=== PATIENT | female | born 1990 | race Caucasian/White ===

== ENCOUNTER 2017-06-21 14:35 | Inpatient (IN) ==
--- NOTE | 2017-06-21 15:08 | Emergency Department Note ---
Disposition Clinical Impression: Suicidal behavior Disposition: Admitted As Inpatient Condition: Fair General Adult HPI - General Chief complaint: ED Psychiatric Symptoms Stated complaint: SI/Psych eval Time Seen by Provider: 06/21/17 15:03 Source: patient Limitations: no limitations - History of Present Illness Pain Scale: 3 - Related Data Home Medications Medication Instructions Recorded Confirmed Albuterol Sulfate [Proair Hfa] 2 puff IH Q4H PRN 02/26/16 06/21/17 BuPROPion SR (12 HR) [Wellbutrin 300 mg PO DAILY 02/26/16 06/21/17 SR] Ondansetron ODT [Zofran ODT] 4 - 8 mg SL Q8H PRN 02/26/16 02/26/16 Pantoprazole Sodium [Protonix] 40 mg PO BID 02/26/16 06/21/17 Ranitidine HCl [Zantac] 150 mg PO BID 02/26/16 06/21/17 SUMAtriptan succinate [Imitrex] 50 mg PO Q2H PRN 02/26/16 02/26/16 Tizanidine HCl [Zanaflex] 2 mg PO HS PRN 02/26/16 02/26/16 Diclofenac Sodium [Voltaren] 50 mg PO Q8HR PRN 06/21/17 06/21/17 Invega 3 mg PO DAILY 06/21/17 06/21/17 Levothyroxine 125 mcg PO DAILY 06/21/17 06/21/17 Valium 5 mg PO BID 06/21/17 06/21/17 Previous Rx's Medication Instructions Recorded hydrOXYzine pamoate [HydrOXYzine 25 - 50 mg PO QID PRN #30 capsule 03/25/16 Pamoate] Hydrocodone/Acetaminophen [[place] 1 tab PO Q6H PRN #10 tab 03/26/16 5-325 Tablet] Cyclobenzaprine HCl 5 mg PO TID PRN #15 tablet 08/05/16 predniSONE [Prednisone] 40 mg PO DAILY #10 tablet 08/05/16 DiphenhydraMINE [Benadryl] 25 mg PO Q8HR PRN #20 capsule 08/11/16 GuaiFENesin ER [Mucinex] 1,200 mg PO BID #20 tbbp.12hr 08/11/16 cephALEXin [Keflex] 500 mg PO QID #40 capsule 08/11/16 Levofloxacin [Levaquin] 500 mg PO DAILY #10 tablet 04/06/17 Loratadine/Pseudophed (12 HR) 1 each PO BID #20 tab.er.12h 04/06/17 [Claritin D (12HR)] methylPREDNISolone [Medrol] 4 mg PO TAPER #21 tablet 04/06/17 Tramadol HCl [Ultram] 50 mg PO QID PRN #20 tab 04/10/17 Allergies Allergy/AdvReac Type Severity Reaction Status Date / Time No Known Allergies Allergy Verified 06/21/17 14:40 Past Medical History - Past Medical History Medical history: Reports: migraine, other Surgical history: Reports: , orthopedic, other, other Psychiatric history: Reports: anxiety, bipolar, depression, other 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 - Social History Smoking Status: Never smoker Smokeless Tobacco Status: No Alcohol use: Reports: occasionally Drug use: Reports: none Physical Exam - General Limitations: no limitations General appearance: anxious Course Vital Signs Temperature 97.8 F 06/21/17 14:41 Pulse Rate 105 06/21/17 14:41 Respiratory Rate 20 06/21/17 14:41 Blood Pressure 150/87 06/21/17 14:41 O2 Sat by Pulse Oximetry 100 06/21/17 14:41 Temperature 97.6 F 06/21/17 21:37 Pulse Rate 94 06/21/17 21:37 Respiratory Rate 18 06/21/17 21:37 Blood Pressure 138/86 06/21/17 21:37 O2 Sat by Pulse Oximetry 100 06/21/17 14:41 Oxygen Delivery Oxygen Delivery Room Air Medical Decision Making - Lab Data Result diagrams: 06/21/17 15:24 06/21/17 15:24 Lab Results 06/21/17 06/21/17 06/21/17 Range/Units 15:24 15:24 15:33 WBC 7.8 (4.3-11.1) K/mcL RBC 3.87 (3.82-4.97) M/mcL Hgb 11.2 L (11.5-15.4) g/dL Hct 34.5 L (35.3-44.9) % MCV 89.1 (83.0-100.0) fL MCH 28.9 (28.0-33.3) pg MCHC 32.5 (31.6-35.5) g/dL RDW 14.1 (11.5-14.5) % Plt Count 196 (140-400) K/mcL MPV 11.1 (9.4-12.4) fL Immature Gran % 0.4 (0-4) % Seg Neutrophils % 61.9 % Lymphocytes % 26.9 % Monocytes % 7.6 % Eosinophils % 2.8 % Basophils % 0.4 % Neutrophils # 4.8 (1.6-8.9) K/mcL Lymphocytes # 2.1 (0.6-4.6) K/mcL Monocytes # 0.6 (0.0-1.3) K/mcL Eosinophils # 0.2 (0.0-0.6) K/mcL Basophils # 0.0 (0.0-0.2) K/mcL Immature Plt Fraction 6.2 H (1.1-6.1) % Sodium 140 (136-145) mEq/L Potassium 3.7 (3.5-4.5) mEq/L Chloride 108 (98-109) mEq/L Carbon Dioxide 27 (19-29) mEq/L BUN 11 (7-20) mg/dL Creatinine 1.01 (0.57-1.11) mg/dL Est GFR ( Amer) > 60 (> 60) Est GFR (Non-Af Amer) > 60 (> 60) BUN/Creatinine Ratio 11 (6-26) Glucose 102 H (70-99) mg/dL Calculated Osmolality 290 (280-300) Calcium 9.3 (8.6-10.8) mg/dL Total Bilirubin < 0.2 L (0.2-1.2) mg/dL AST 27 (5-34) Units/L ALT 29 (0-55) Units/L Alkaline Phosphatase 92 (38-126) Units/L Serum Total Protein 7.2 (6.0-8.3) g/dL Albumin 3.6 (3.5-5.0) g/dL Globulin 3.6 H (2.4-3.5) g/dL Albumin/Globulin Ratio 1.0 L (1.1-2.2) TSH 3.625 (0.350-4.840) mcIU/mL Urine Color Yellow (Yellow) Urine Clarity Clear (Clear) Urine pH 6.0 (5.0-8.0) pH Units Ur Specific [place] 1.011 (1.010-1.025) Urine Protein Negative (Neg-Trace) mg/dL Urine Glucose (UA) Normal (Normal) mg/dL Urine Ketones Negative (Negative) mg/dL Urine Blood Negative (Negative) Urine Nitrite Negative (Negative) Urine Bilirubin Negative (Negative) Urine Urobilinogen Normal (Normal) mg/dL Ur Leukocyte Esterase Negative (Negative) Ur Culture Indicated? NO (NO) Urine Test (Negative) Salicylates < 5.0 L (15-30) mg/dL Urine Opiates Screen (Jsimfc=499) ng/mL Acetaminophen < 1.0 L (10-30) mcg/mL Ur Barbiturates Screen (Sukkxy=649) ng/mL Ur Phencyclidine Scrn (Cutoff=25) ng/mL Ur Amphetamines Screen (Smqval=7530) ng/mL U Benzodiazepines Scrn (Azckwi=598) ng/mL Urine Cocaine Screen (Cutoff= 300) ng/mL U Marijuana (THC) Screen (Cutoff = 50) ng/mL Ethyl Alcohol < 10 (0-10) mg/dL 06/21/17 06/21/17 Range/Units 15:33 15:33 WBC (4.3-11.1) K/mcL RBC (3.82-4.97) M/mcL Hgb (11.5-15.4) g/dL Hct (35.3-44.9) % MCV (83.0-100.0) fL MCH (28.0-33.3) pg MCHC (31.6-35.5) g/dL RDW (11.5-14.5) % Plt Count (140-400) K/mcL MPV (9.4-12.4) fL Immature Gran % (0-4) % Seg Neutrophils % % Lymphocytes % % Monocytes % % Eosinophils % % Basophils % % Neutrophils # (1.6-8.9) K/mcL Lymphocytes # (0.6-4.6) K/mcL Monocytes # (0.0-1.3) K/mcL Eosinophils # (0.0-0.6) K/mcL Basophils # (0.0-0.2) K/mcL Immature Plt Fraction (1.1-6.1) % Sodium (136-145) mEq/L Potassium (3.5-4.5) mEq/L Chloride (98-109) mEq/L Carbon Dioxide (19-29) mEq/L BUN (7-20) mg/dL Creatinine (0.57-1.11) mg/dL Est GFR ( Amer) (> 60) Est GFR (Non-Af Amer) (> 60) BUN/Creatinine Ratio (6-26) Glucose (70-99) mg/dL Calculated Osmolality (280-300) Calcium (8.6-10.8) mg/dL Total Bilirubin (0.2-1.2) mg/dL AST (5-34) Units/L ALT (0-55) Units/L Alkaline Phosphatase (38-126) Units/L Serum Total Protein (6.0-8.3) g/dL Albumin (3.5-5.0) g/dL Globulin (2.4-3.5) g/dL Albumin/Globulin Ratio (1.1-2.2) TSH (0.350-4.840) mcIU/mL Urine Color (Yellow) Urine Clarity (Clear) Urine pH (5.0-8.0) pH Units Ur Specific [place] (1.010-1.025) Urine Protein (Neg-Trace) mg/dL Urine Glucose (UA) (Normal) mg/dL Urine Ketones (Negative) mg/dL Urine Blood (Negative) Urine Nitrite (Negative) Urine Bilirubin (Negative) Urine Urobilinogen (Normal) mg/dL Ur Leukocyte Esterase (Negative) Ur Culture Indicated? (NO) Urine Test Negative (Negative) Salicylates (15-30) mg/dL Urine Opiates Screen Negative (Uloxjg=316) ng/mL Acetaminophen (10-30) mcg/mL Ur Barbiturates Screen Negative (Gfugaa=840) ng/mL Ur Phencyclidine Scrn Negative (Cutoff=25) ng/mL Ur Amphetamines Screen Negative (Wdycib=4426) ng/mL U Benzodiazepines Scrn Positive H (Swvlgh=897) ng/mL Urine Cocaine Screen Negative (Cutoff= 300) ng/mL U Marijuana (THC) Screen Negative (Cutoff = 50) ng/mL Ethyl Alcohol (0-10) mg/dL Attestation Statement - Attestation Attestation: I examined this patient and my medical decision-making was reviewed with the Resident Physician. I agree with the documented findings, disposition and treatment plan as described except to the extent set forth below. [id number] time provided Patient feels depressed and suicidal. Flat affect on exam. Triage note and vitals reviewed by me
--- NOTE | 2017-06-21 15:16 | Emergency Department Note ---
Disposition Clinical Impression: Suicidal behavior Qualifiers: Attempted self-injury: with attempted self-injury Qualified Code(s): T14.91XA - Suicide attempt, initial encounter Disposition: Admitted As Inpatient Condition: Fair Psych HPI - General Chief Complaint: ED Psychiatric Symptoms Stated Complaint: SI/Psych eval Time Seen by Provider: 06/21/17 15:03 Source: patient Nursing Notes Reviewed: Yes Vital Signs Reviewed: Yes - History of Present Illness HPI Narrative: 26-year-old female presents to the emergency department after having worsening suicidal thoughts over the last 2 weeks. Patient states that she has tried to kill herself by cutting her right upper thigh. She has cut it 5 times with a razor blade. She also has thoughts of overdosing on pills, but does not have any specific drug of choice that she would prefer. Patient states that she does not want to hurt anybody else. - Related Data Home Medications Medication Instructions Recorded Confirmed Albuterol Sulfate [Proair Hfa] 2 puff IH Q4H PRN 02/26/16 06/21/17 BuPROPion SR (12 HR) [Wellbutrin 300 mg PO DAILY 02/26/16 06/21/17 SR] Ondansetron ODT [Zofran ODT] 4 - 8 mg SL Q8H PRN 02/26/16 02/26/16 Pantoprazole Sodium [Protonix] 40 mg PO BID 02/26/16 06/21/17 Ranitidine HCl [Zantac] 150 mg PO BID 02/26/16 06/21/17 SUMAtriptan succinate [Imitrex] 50 mg PO Q2H PRN 02/26/16 02/26/16 Tizanidine HCl [Zanaflex] 2 mg PO HS PRN 02/26/16 02/26/16 Diclofenac Sodium [Voltaren] 50 mg PO Q8HR PRN 06/21/17 06/21/17 Previous Rx's Medication Instructions Recorded hydrOXYzine pamoate [HydrOXYzine 25 - 50 mg PO QID PRN #30 capsule 03/25/16 Pamoate] Hydrocodone/Acetaminophen [[place] 1 tab PO Q6H PRN #10 tab 03/26/16 5-325 Tablet] Cyclobenzaprine HCl 5 mg PO TID PRN #15 tablet 08/05/16 predniSONE [Prednisone] 40 mg PO DAILY #10 tablet 08/05/16 DiphenhydraMINE [Benadryl] 25 mg PO Q8HR PRN #20 capsule 08/11/16 GuaiFENesin ER [Mucinex] 1,200 mg PO BID #20 tbbp.12hr 08/11/16 cephALEXin [Keflex] 500 mg PO QID #40 capsule 08/11/16 Levofloxacin [Levaquin] 500 mg PO DAILY #10 tablet 04/06/17 Loratadine/Pseudophed (12 HR) 1 each PO BID #20 tab.er.12h 04/06/17 [Claritin D (12HR)] methylPREDNISolone [Medrol] 4 mg PO TAPER #21 tablet 04/06/17 Tramadol HCl [Ultram] 50 mg PO QID PRN #20 tab 04/10/17 Allergies Allergy/AdvReac Type Severity Reaction Status Date / Time No Known Allergies Allergy Verified 06/21/17 14:40 All systems ED: reviewed and negative except as stated. Review of Systems: As Per HPI Constitutional: Denies: fever Eyes: Denies: eye pain ENT ED: Denies: ear pain, congestion Cardiovascular: Denies: chest pain, edema, syncope Respiratory: Denies: cough, dyspnea Gastrointestinal: Denies: abdominal pain, nausea, vomiting Genitourinary: Denies: urgency, dysuria, frequency Musculoskeletal: Reports: other (Mild right thigh pain) Integumentary: Reports: abrasion (Right upper thigh) Neurological: Denies: headache Psychiatric: Reports: suicidal thoughts. 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 Absent: scleral icterus, conjunctival injection - ENT ENT exam: normal oropharynx, mucous membranes moist - Neck Neck exam: Present: full ROM, trachea midline. Absent: tenderness, meningismus - Chest Chest inspection: Present: symmetric chest wall rise - Respiratory Respiratory exam: Present: normal lung sounds bilaterally. Absent: respiratory distress - Cardiovascular Cardiovascular exam: Present: normal rhythm, tachycardia, normal heart sounds - Abdominal Exam Abdominal exam: Present: soft, Non-Tender. Absent: distention, guarding, rebound, rigidity - Extremities Exam Extremities exam: Present: normal capillary refill - Expanded Lower Extremity Exam Upper leg exam: Present: laceration (15. 3 cm horizontal superficial clean lacerations, no erythema, bleeding or purulent drainage appreciated.) - Back Exam Back exam: Absent: tenderness - Neurological Exam Neurological exam: Present: alert, oriented X3, CN II-XII intact - Psychiatric Psychiatric exam: Present: depressed, suicidal ideation - Skin Skin exam: Present: warm, dry Course Course Narrative: 26-year-old female presents to the emergency department with suicidal ideations. Patient has 15 through 7 are superficial lacerations on the right upper thigh. This does not appear cellulitic in nature, and are too superficial to repair with suture. Patient is currently being medically cleared prior to evaluation by one day. Patient has been pink slipped and is currently on suicide precautions with a sitter. Patient is hemodynamically stable at this time. Vital Signs Temperature 97.8 F 06/21/17 14:41 Pulse Rate 105 06/21/17 14:41 Respiratory Rate 20 06/21/17 14:41 Blood Pressure 150/87 06/21/17 14:41 O2 Sat by Pulse Oximetry 100 06/21/17 14:41 Temperature 97.8 F 06/21/17 14:41 Pulse Rate 105 06/21/17 14:41 Respiratory Rate 20 06/21/17 14:41 Blood Pressure 150/87 06/21/17 14:41 O2 Sat by Pulse Oximetry 100 06/21/17 14:41 Oxygen Delivery Oxygen Delivery Room Air - Reevaluation(s) Reevaluation #1: Patient's labs only came back positive for a urinalysis with benzos. The patient is currently not in any respiratory distress. Patient is medically cleared from the standpoint of the emergency department. We have contacted [facility] to come evaluate her. Time: 16:43 Reevaluation #2: Patient was evaluated by one and was accepted by psychiatry for admission to the hospital. Vital Signs Temperature 97.8 F 06/21/17 14:41 Pulse Rate 105 06/21/17 14:41 Respiratory Rate 20 06/21/17 14:41 Blood Pressure 150/87 06/21/17 14:41 O2 Sat by Pulse Oximetry 100 06/21/17 14:41 Temperature 98.5 F 06/21/17 19:01 Pulse Rate 93 06/21/17 19:01 Respiratory Rate 18 06/21/17 19:01 Blood Pressure 113/79 06/21/17 19:01 O2 Sat by Pulse Oximetry 100 06/21/17 14:41 Oxygen Delivery Oxygen Delivery Room Air Psych - Lab Data Result diagrams: 06/21/17 15:24 06/21/17 15:24 Lab Results 06/21/17 06/21/17 06/21/17 Range/Units 15:24 15:24 15:33 WBC 7.8 (4.3-11.1) K/mcL RBC 3.87 (3.82-4.97) M/mcL Hgb 11.2 L (11.5-15.4) g/dL Hct 34.5 L (35.3-44.9) % MCV 89.1 (83.0-100.0) fL MCH 28.9 (28.0-33.3) pg MCHC 32.5 (31.6-35.5) g/dL RDW 14.1 (11.5-14.5) % Plt Count 196 (140-400) K/mcL MPV 11.1 (9.4-12.4) fL Immature Gran % 0.4 (0-4) % Seg Neutrophils % 61.9 % Lymphocytes % 26.9 % Monocytes % 7.6 % Eosinophils % 2.8 % Basophils % 0.4 % Neutrophils # 4.8 (1.6-8.9) K/mcL Lymphocytes # 2.1 (0.6-4.6) K/mcL Monocytes # 0.6 (0.0-1.3) K/mcL Eosinophils # 0.2 (0.0-0.6) K/mcL Basophils # 0.0 (0.0-0.2) K/mcL Immature Plt Fraction 6.2 H (1.1-6.1) % Sodium 140 (136-145) mEq/L Potassium 3.7 (3.5-4.5) mEq/L Chloride 108 (98-109) mEq/L Carbon Dioxide 27 (19-29) mEq/L BUN 11 (7-20) mg/dL Creatinine 1.01 (0.57-1.11) mg/dL Est GFR ( Amer) > 60 (> 60) Est GFR (Non-Af Amer) > 60 (> 60) BUN/Creatinine Ratio 11 (6-26) Glucose 102 H (70-99) mg/dL Calculated Osmolality 290 (280-300) Calcium 9.3 (8.6-10.8) mg/dL Total Bilirubin < 0.2 L (0.2-1.2) mg/dL AST 27 (5-34) Units/L ALT 29 (0-55) Units/L Alkaline Phosphatase 92 (38-126) Units/L Serum Total Protein 7.2 (6.0-8.3) g/dL Albumin 3.6 (3.5-5.0) g/dL Globulin 3.6 H (2.4-3.5) g/dL Albumin/Globulin Ratio 1.0 L (1.1-2.2) TSH 3.625 (0.350-4.840) mcIU/mL Urine Color Yellow (Yellow) Urine Clarity Clear (Clear) Urine pH 6.0 (5.0-8.0) pH Units Ur Specific [place] 1.011 (1.010-1.025) Urine Protein Negative (Neg-Trace) mg/dL Urine Glucose (UA) Normal (Normal) mg/dL Urine Ketones Negative (Negative) mg/dL Urine Blood Negative (Negative) Urine Nitrite Negative (Negative) Urine Bilirubin Negative (Negative) Urine Urobilinogen Normal (Normal) mg/dL Ur Leukocyte Esterase Negative (Negative) Ur Culture Indicated? NO (NO) Urine Test (Negative) Salicylates < 5.0 L (15-30) mg/dL Urine Opiates Screen (Mxzyxd=868) ng/mL Acetaminophen < 1.0 L (10-30) mcg/mL Ur Barbiturates Screen (Oxzjpa=568) ng/mL Ur Phencyclidine Scrn (Cutoff=25) ng/mL Ur Amphetamines Screen (Hxidhw=4801) ng/mL U Benzodiazepines Scrn (Wvkyxf=128) ng/mL Urine Cocaine Screen (Cutoff= 300) ng/mL U Marijuana (THC) Screen (Cutoff = 50) ng/mL Ethyl Alcohol < 10 (0-10) mg/dL 06/21/17 06/21/17 Range/Units 15:33 15:33 WBC (4.3-11.1) K/mcL RBC (3.82-4.97) M/mcL Hgb (11.5-15.4) g/dL Hct (35.3-44.9) % MCV (83.0-100.0) fL MCH (28.0-33.3) pg MCHC (31.6-35.5) g/dL RDW (11.5-14.5) % Plt Count (140-400) K/mcL MPV (9.4-12.4) fL Immature Gran % (0-4) % Seg Neutrophils % % Lymphocytes % % Monocytes % % Eosinophils % % Basophils % % Neutrophils # (1.6-8.9) K/mcL Lymphocytes # (0.6-4.6) K/mcL Monocytes # (0.0-1.3) K/mcL Eosinophils # (0.0-0.6) K/mcL Basophils # (0.0-0.2) K/mcL Immature Plt Fraction (1.1-6.1) % Sodium (136-145) mEq/L Potassium (3.5-4.5) mEq/L Chloride (98-109) mEq/L Carbon Dioxide (19-29) mEq/L BUN (7-20) mg/dL Creatinine (0.57-1.11) mg/dL Est GFR ( Amer) (> 60) Est GFR (Non-Af Amer) (> 60) BUN/Creatinine Ratio (6-26) Glucose (70-99) mg/dL Calculated Osmolality (280-300) Calcium (8.6-10.8) mg/dL Total Bilirubin (0.2-1.2) mg/dL AST (5-34) Units/L ALT (0-55) Units/L Alkaline Phosphatase (38-126) Units/L Serum Total Protein (6.0-8.3) g/dL Albumin (3.5-5.0) g/dL Globulin (2.4-3.5) g/dL Albumin/Globulin Ratio (1.1-2.2) TSH (0.350-4.840) mcIU/mL Urine Color (Yellow) Urine Clarity (Clear) Urine pH (5.0-8.0) pH Units Ur Specific [place] (1.010-1.025) Urine Protein (Neg-Trace) mg/dL Urine Glucose (UA) (Normal) mg/dL Urine Ketones (Negative) mg/dL Urine Blood (Negative) Urine Nitrite (Negative) Urine Bilirubin (Negative) Urine Urobilinogen (Normal) mg/dL Ur Leukocyte Esterase (Negative) Ur Culture Indicated? (NO) Urine Test Negative (Negative) Salicylates (15-30) mg/dL Urine Opiates Screen Negative (Fobazz=460) ng/mL Acetaminophen (10-30) mcg/mL Ur Barbiturates Screen Negative (Jafjtv=661) ng/mL Ur Phencyclidine Scrn Negative (Cutoff=25) ng/mL Ur Amphetamines Screen Negative (Buhhnx=5017) ng/mL U Benzodiazepines Scrn Positive H (Bsjvor=679) ng/mL Urine Cocaine Screen Negative (Cutoff= 300) ng/mL U Marijuana (THC) Screen Negative (Cutoff = 50) ng/mL Ethyl Alcohol (0-10) mg/dL Psychiatric Medical Clearance - Medical Clearance Checklist Medical History: Suicidal behavior (Acute) Acute pain of right shoulder (Inactive) Acute sinus infection (Inactive) Acute sinusitis (Inactive) Anxiety state, unspecified (Inactive) Back pain (Inactive) Bilateral otitis media (Inactive) Breast pain, right (Inactive) Foot sprain (Inactive) Foot sprain (Inactive) Left otitis externa (Inactive) Lower gastrointestinal hemorrhage (Inactive) Migraine (Inactive) Migraine (Inactive) Right flank pain (Inactive) Sinusitis (Inactive) Sinusitis (Inactive) Sinusitis (Inactive) Sinusitis (Inactive) Sinusitis (Inactive) URI, acute (Inactive) Upper respiratory infection (Inactive) Upper respiratory infection (Inactive) Urinary tract infection (Inactive) No Social History Section defined Current Vitals: Last Vital Signs Temp 98.5 F 06/21/17 19:01 Pulse 93 06/21/17 19:01 Resp 18 06/21/17 19:01 BP 113/79 06/21/17 19:01 Pulse Ox 100 06/21/17 14:41 Psychiatric Lab Panel: Drug Levels and Toxicity 06/21/17 06/21/17 15:24 15:33 Urine Opiates Screen Negative Acetaminophen < 1.0 L Ur Barbiturates Screen Negative Ur Phencyclidine Scrn Negative Ur Amphetamines Screen Negative U Benzodiazepines Scrn Positive H Urine Cocaine Screen Negative U Marijuana (THC) Screen Negative Ethyl Alcohol < 10 Abnormal Labs: Abnormal lab results Hgb 11.2 g/dL (11.5-15.4) L 06/21/17 15:24 Hct 34.5 % (35.3-44.9) L 06/21/17 15:24 Immature Plt Fraction 6.2 % (1.1-6.1) H 06/21/17 15:24 Glucose 102 mg/dL (70-99) H 06/21/17 15:24 Total Bilirubin < 0.2 mg/dL (0.2-1.2) L 06/21/17 15:24 Globulin 3.6 g/dL (2.4-3.5) H 06/21/17 15:24 Albumin/Globulin Ratio 1.0 (1.1-2.2) L 06/21/17 15:24 Salicylates < 5.0 mg/dL (15-30) L 06/21/17 15:24 Acetaminophen < 1.0 mcg/mL (10-30) L 06/21/17 15:24 U Benzodiazepines Scrn Positive ng/mL (Ydffre=195) H 06/21/17 15:33 Statement of Medical Clearance: I have evaluated the patient, reviewed diagnostic information, and certify that the patient's medical condition is sufficiently stable that transfer to the psychiatric unit does not pose a significant risk of deterioration.
[2017-06-21 15:33] LABS: Basophils % 0.4 %; Eosinophils # 0.2 K/mcL (0.0-0.6); Eosinophils % 2.8 %; Hematocrit 34.5 % (35.3-44.9); Hemoglobin 11.2 g/dL (11.5-15.4); Immature Granulocytes % 0.4 % (0-4); Immature Platelets 6.2 % (1.1-6.1); Lymphocytes # 2.1 K/mcL (0.6-4.6); Lymphocytes % 26.9 %; Mean Corpuscular HGB Conc 32.5 g/dL (31.6-35.5); Mean Corpuscular Hemoglobin 28.9 pg (28.0-33.3); Mean Corpuscular Volume 89.1 fL (83.0-100.0); Mean Platelet Volume 11.1 fL (9.4-12.4); Monocytes # 0.6 K/mcL (0.0-1.3); Monocytes % 7.6 %; Neutrophils # 4.8 K/mcL (1.6-8.9); Platelet Count 196 K/mcL (140-400); Red Blood Count 3.87 M/mcL (3.82-4.97); Red Cell Distribution Width 14.1 % (11.5-14.5); Segmented Neutrophils % 61.9 %
[2017-06-21 15:48] LABS: Alanine Aminotransferase 29 Units/L (0-55); Albumin 3.6 g/dL (3.5-5.0); Alkaline Phosphatase 92 Units/L (38-126); Aspartate Amino Transferase 27 Units/L (5-34); BUN/Creatinine Ratio 11 (6-26); Blood Urea Nitrogen 11 mg/dL (7-20); Calcium 9.3 mg/dL (8.6-10.8); Carbon Dioxide 27 mEq/L (19-29); Chloride 108 mEq/L (98-109); Globulin 3.6 g/dL (2.4-3.5); Glucose 102 mg/dL (70-99); Osmolality,Calculated 290 (280-300); Potassium 3.7 mEq/L (3.5-4.5); Sodium 140 mEq/L (136-145); Total Protein 7.2 g/dL (6.0-8.3); eGFR For African Americans > 60 (> 60); eGFR For Non-African Americans > 60 (> 60)
[2017-06-21 15:49] LABS: Bilirubin,Total < 0.2 mg/dL (0.2-1.2); Ethanol < 10 mg/dL (0-10); Salicylate < 5.0 mg/dL (15-30)
[2017-06-21 15:50] LABS: Bilirubin,Urine Negative (Negative); Blood,Urine Negative (Negative); Clarity,Urine Clear (Clear); Color,Urine Yellow (Yellow); Glucose,Urine (UA) Normal (Normal); Ketones,Urine Negative (Negative); Leukocyte Esterase,Urine Negative (Negative); Nitrite,Urine Negative (Negative); Protein,Urine Negative (Neg-Trace); Specific Gravity,Urine 1.011 (1.010-1.025); Urobilinogen,Urine Normal (Normal)
[2017-06-21 16:02] LABS: Amphetamine Screen,Urine Negative ng/mL (Cutoff=1000); Barbiturate Screen,Urine Negative ng/mL (Cutoff=200); Benzodiazepines Screen,Urine Positive ng/mL (Cutoff=200); Cannabinoid Screen,Urine Negative ng/mL (Cutoff = 50); Cocaine Screen,Urine Negative ng/mL (Cutoff= 300); Opiate Screen,Urine Negative ng/mL (Cutoff=300); Phencyclidine Screen,Urine Negative ng/mL (Cutoff=25)
[2017-06-21 16:07] LABS: Thyroid Stimulating Hormone 3.625 mcIU/mL (0.350-4.840)
[2017-06-21 16:35] LABS: Acetaminophen < 1.0 mcg/mL (10-30)
[2017-06-21] MEDS ORDERED: Haloperidol Lactate 5 MG/ML VIAL IM PRN (21:55)
[2017-06-21] MEDS ORDERED: Ibuprofen 400 MG TABLET PO PRN (21:55)
[2017-06-21] MEDS ORDERED: hydrOXYzine pamoate 25 MG CAPSULE PO PRN (21:55)
[2017-06-21] MEDS ORDERED: Mag Hydrox/Al Hydrox/Simeth 30 ML UDC PO PRN (21:55)
[2017-06-21] MEDS ORDERED: *HR* LORazepam 1 MG TABLET PO PRN (21:55)
[2017-06-21] MEDS ORDERED: traZODone 50 MG TABLET PO PRN (21:55)
[2017-06-21] MEDS ORDERED: *HR* LORazepam 2 MG/ML VIAL IM PRN (21:55)
[2017-06-21] MEDS ORDERED: MOM Conc 10 ML UD.LIQ PO PRN (21:55)
[2017-06-21] MEDS ORDERED: Ibuprofen 600 MG TABLET PO PRN (22:36)
[2017-06-22] MEDS: Famotidine 20 MG TABLET PO SCH ×2 (09:33→20:10)
[2017-06-22] MEDS: BuPROPion XL (24 HR) 150 MG TABLET PO SCH (09:33)
[2017-06-22] MEDS: diazePAM 5 MG TABLET PO SCH ×2 (09:33→20:10)
--- NOTE | 2017-06-22 11:26 | Psychiatry History & Physical ---
Date of Encounter: 06/22/17 Time of Encounter: 10:21 History of Present Illness Patient Stated Chief Complaint: "I am depressed and suicidal" Medicare Admission Attestation: For traditional Medicare patients the provided hospital inpatient services are reasonable and necessary and in the case of services not specified as inpatient -only under 42 CFR 419.22 (n), that they are appropriately provided as inpatient services in accordance 42 CFR 412.3. For Critical Access Hospital the patient may reasonably be expected to be discharged or transferred to a hospital within 96 hours after admission to the Critical Access Hospital. Admitted From: Emergency Dept Plans for Post Hospital Care: Home History of Present Illness: Ms. Sauceda is a 26 year old female who was referred for hospitalization from emergency department where she presented with depression and suicidal ideation with thoughts of overdosing on pills and ending her life. Patient reported that she has been struggling from depression off and on since her teenage years. She reported that her recent bout of depression started 2 weeks ago. Symptoms of her depression include low mood and anhedonia isolated and withdrawn behavior hopeless and helpless feelings crying and weeping spells and low energy levels and recurrent suicidal thoughts and ideations. Patient is unable to identify any specific precipitating factor or trigger for this depression. Since patient was suicidal and was unable to contract for safety was decided to transfer her to [facility] for safety concerns. Past Med Surg Social Fam HX - Past Medical History Medical history: migraine, other - Past Psychiatric History Psychiatric history: Reports: depression. Denies: previous psychiatric hospitalization Past psychiatric history details: No prior inpatient psychiatric hospitalization. Patient has been receiving treatment from outpatient providers for her depression for last many years. She reported that she has been tried on Zoloft Celexa Effexor in the past. Currently she is taking Wellbutrin and Invega prescribed by her primary care physician. She did report a good response on Wellbutrin in the past. Family psychiatric history: Yes Family Psychiatric History Details: Mother suffers from anxiety and depression Family History of Suicide: None - Past Surgical History Surgical History: , orthopedic, other, other - Social History Smoking Status: Never smoker Smokeless Tobacco Status: No Alcohol use: occasionally Drug use: none Occupational status: employed Current living situation: Home, With Family Activity Level: Independent ambulation Recent Out of Country Travel Within the Last 8 Weeks: No Exposure or Possible Exposure to Illness During Travel: No Additional social history: Patient is born and raised in [place]. Reported good childhood. Denies any physical or sexual abuse. Patient graduated high school. She has a son from a previous relationship was 4 years old. She is in a lesbian relationship with her partner for the last 4 years. They have been and living together since last year. She reported good relationship with her . She denies any legal issues. Medications & Allergies Albuterol Sulfate [Proair Hfa] 2 puff IH Q4H PRN 02/26/16 [History] BuPROPion SR (12 HR) [Wellbutrin SR] 300 mg PO DAILY 02/26/16 [History] Pantoprazole Sodium [Protonix] 40 mg PO BID 02/26/16 [History] Ranitidine HCl [Zantac] 150 mg PO BID 02/26/16 [History] SUMAtriptan succinate [Imitrex] 50 mg PO Q2H PRN 02/26/16 [History] Diclofenac Sodium [Voltaren] 50 mg PO Q8HR PRN 06/21/17 [History] Levothyroxine [Synthroid] 125 mcg PO DAILY 06/21/17 [History] Paliperidone [Paliperidone ER] 3 mg PO DAILY 06/21/17 [History] diazePAM [Valium] 5 mg PO BID 06/21/17 [History] Montelukast [Singulair] 10 mg PO DAILY 06/22/17 [History] lamoTRIgine [Lamictal] 50 mg PO QAM 06/22/17 [History] 3 Allergy/AdvReac Type Severity Reaction Status Date / Time No Known Allergies Allergy Verified 06/21/17 14:40 Review of Systems Psychiatric: Reports: depression, abnormal sleep pattern, suicidal ideation, anhedonia, difficulty concentrating, hopelessness Mental Status Exam Patient orientation: Yes Person, Yes Time, Yes Place Level of alertness: Alert Patient appearance: Disheveled, Obese Behavior: tearful, withdrawn Psychomotor activity: Slowed Eye contact: Maintains Eye Contact Mood description: Depressed, Anxious Affect description: blunted, tearful, dysphoric Speech pattern: Slowed Speech volume: Soft/Quiet Thought process: Linear, Goal Oriented Thought content: Yes Suicidal ideation, No Homicidal ideation, No Overt delusions, Yes Ideas of reference, Yes Paranoid delusion Perceptual disturbances: No Auditory hallucinations, No Visual hallucinations Attention span: Capable of Focused Attention Memory description: Grossly Intact Patient reliability: Reliable Historian Intelligence estimate: Average Judgment: Fair Insight: Partial Exam - HEENT Head exam IM: Present: normal inspection Eye exam IM: Present: normal appearance ENT exam IM: Present: mucous membranes moist, normal exam - Neurological Neurological exam IM: Present: alert, CN II-XII intact, normal gait, oriented X3 , reflexes normal, no focal deficits, strengths equal and symetr throughout. Absent: motor sensory deficit - Respiratory Respiratory exam IM: Absent: respiratory distress - GI/Abdominal GI/Abdominal exam IM: Present: normal bowel sounds, soft. Absent: mass, tenderness - Extremities Extremities exam IM: Present: normal inspection - Skin Skin exam IM: Present: normal color Results - Vital Signs Vital signs: Temp Pulse Resp BP Pulse Ox 97.6 F 94 18 138/86 100 06/21/17 21:37 06/21/17 21:37 06/21/17 21:37 06/21/17 21:37 06/21/17 14:41 - Labs Labs: Laboratory Last Values WBC 7.8 K/mcL (4.3-11.1) 06/21/17 15:24 RBC 3.87 M/mcL (3.82-4.97) 06/21/17 15:24 Hgb 11.2 g/dL (11.5-15.4) L 06/21/17 15:24 Hct 34.5 % (35.3-44.9) L 06/21/17 15:24 MCV 89.1 fL (83.0-100.0) 06/21/17 15:24 MCH 28.9 pg (28.0-33.3) 06/21/17 15:24 MCHC 32.5 g/dL (31.6-35.5) 06/21/17 15:24 RDW 14.1 % (11.5-14.5) 06/21/17 15:24 Plt Count 196 K/mcL (140-400) 06/21/17 15:24 MPV 11.1 fL (9.4-12.4) 06/21/17 15:24 Immature Gran % 0.4 % (0-4) 06/21/17 15:24 Seg Neutrophils % 61.9 % 06/21/17 15:24 Lymphocytes % 26.9 % 06/21/17 15:24 Monocytes % 7.6 % 06/21/17 15:24 Eosinophils % 2.8 % 06/21/17 15:24 Basophils % 0.4 % 06/21/17 15:24 Neutrophils # 4.8 K/mcL (1.6-8.9) 06/21/17 15:24 Lymphocytes # 2.1 K/mcL (0.6-4.6) 06/21/17 15:24 Monocytes # 0.6 K/mcL (0.0-1.3) 06/21/17 15:24 Eosinophils # 0.2 K/mcL (0.0-0.6) 06/21/17 15:24 Basophils # 0.0 K/mcL (0.0-0.2) 06/21/17 15:24 Immature Plt Fraction 6.2 % (1.1-6.1) H 06/21/17 15:24 Sodium 140 mEq/L (136-145) 06/21/17 15:24 Potassium 3.7 mEq/L (3.5-4.5) 06/21/17 15:24 Chloride 108 mEq/L (98-109) 06/21/17 15:24 Carbon Dioxide 27 mEq/L (19-29) 06/21/17 15:24 BUN 11 mg/dL (7-20) 06/21/17 15:24 Creatinine 1.01 mg/dL (0.57-1.11) 06/21/17 15:24 Est GFR ( Amer) > 60 (> 60) 06/21/17 15:24 Est GFR (Non-Af Amer) > 60 (> 60) 06/21/17 15:24 BUN/Creatinine Ratio 11 (6-26) 06/21/17 15:24 Glucose 102 mg/dL (70-99) H 06/21/17 15:24 Calculated Osmolality 290 (280-300) 06/21/17 15:24 Calcium 9.3 mg/dL (8.6-10.8) 06/21/17 15:24 Total Bilirubin < 0.2 mg/dL (0.2-1.2) L 06/21/17 15:24 AST 27 Units/L (5-34) 06/21/17 15:24 ALT 29 Units/L (0-55) 06/21/17 15:24 Alkaline Phosphatase 92 Units/L (38-126) 06/21/17 15:24 Serum Total Protein 7.2 g/dL (6.0-8.3) 06/21/17 15:24 Albumin 3.6 g/dL (3.5-5.0) 06/21/17 15:24 Globulin 3.6 g/dL (2.4-3.5) H 06/21/17 15:24 Albumin/Globulin Ratio 1.0 (1.1-2.2) L 06/21/17 15:24 TSH 3.625 mcIU/mL (0.350-4.840) 06/21/17 15:24 Urine Color Yellow (Yellow) 06/21/17 15: Urine Clarity Clear (Clear) 06/21/17 15: Urine pH 6.0 pH Units (5.0-8.0) 06/21/17 15:33 Ur Specific [place] 1.011 (1.010-1.025) 06/21/17 15: Urine Protein Negative mg/dL (Neg-Trace) 06/21/17 15: Urine Glucose (UA) Normal mg/dL (Normal) 06/21/17 15:33 Urine Ketones Negative mg/dL (Negative) 06/21/17 15: Urine Blood Negative (Negative) 06/21/17 15: Urine Nitrite Negative (Negative) 06/21/17 15: Urine Bilirubin Negative (Negative) 06/21/17 15:33 Urine Urobilinogen Normal mg/dL (Normal) 06/21/17 15:33 Ur Leukocyte Esterase Negative (Negative) 06/21/17 15:33 Ur Culture Indicated? NO (NO) 06/21/17 15:33 Urine Test Negative (Negative) 06/21/17 15: Salicylates < 5.0 mg/dL (15-30) L 06/21/17 15: Urine Opiates Screen Negative ng/mL (Qvypdb=276) 06/21/17 15: Acetaminophen < 1.0 mcg/mL (10-30) L 06/21/17 15:24 Ur Barbiturates Screen Negative ng/mL (Zzsedm=667) 06/21/17 15: Ur Phencyclidine Scrn Negative ng/mL (Cutoff=25) 06/21/17 15:33 Ur Amphetamines Screen Negative ng/mL (Badcwp=5611) 06/21/17 15:33 U Benzodiazepines Scrn Positive ng/mL (Afmjgh=981) H 06/21/17 15:33 Urine Cocaine Screen Negative ng/mL (Cutoff= 300) 06/21/17 15:33 U Marijuana (THC) Screen Negative ng/mL (Cutoff = 50) 06/21/17 15:33 Ethyl Alcohol < 10 mg/dL (0-10) 06/21/17 15:24 Assessment and Plan (1) MDD (major depressive disorder), recurrent severe, without psychosis Current visit: Yes Status: Acute Plan: Admit inpatient for safety and stabilization, Close observation, Suicide Precautions per unit protocol, Encourage participation in unit milieu, Group Therapy, Monitor sleep, Monitor appetite Additional Plan: We will continue patient's Wellbutrin and InVega and will add Prozac 20 mg daily for her depression and anxiety. Risks, benefits, side effects, alternatives discussed w/pt: Yes Patient agreeable to treatment: Yes Plans for Post Hospital Care: Home Estimated Length of Stay (Days): 4
[2017-06-22] MEDS ORDERED: FLUoxetine HCl Oral Soln 20 MG/5 ML UDC PO SCH ×2 (11:30→15:30)
[2017-06-22] MEDS: FLUoxetine 20 MG CAPSULE PO SCH (19:55)
[2017-06-23] MEDS: BuPROPion XL (24 HR) 150 MG TABLET PO SCH (08:36)
[2017-06-23] MEDS: Famotidine 20 MG TABLET PO SCH ×2 (08:36→20:45)
[2017-06-23] MEDS: diazePAM 5 MG TABLET PO SCH ×2 (08:36→20:45)
[2017-06-23] MEDS: FLUoxetine 20 MG CAPSULE PO SCH (08:37)
[2017-06-23] MEDS ORDERED: FLUoxetine 20 MG CAPSULE PO SCH (09:00)
--- NOTE | 2017-06-23 09:58 | Psychiatry Progress Note ---
Date of Encounter: 06/23/17 Time of Encounter: 08:30 Subjective Interval history: Jayde is a 26-year-old female with a history of depression and borderline personality disorder who presented to the hospital with increasing depression and suicidal ideations. Patient also reports that she occasionally cuts to relieve emotional pain and stress. Over the past few months she had had worsening depression with increasing intermittent suicidal ideations. She was admitted to the hospital and states that she started Prozac yesterday. Patient has not noted benefit from the medicine yet. She still has feelings of hopelessness and generally low mood. She did not take Seroquel yesterday evening for sleep but feels that this medication was too strong. Occasionally she does feel she needs a sleep aid but not every night. Patient has not had the opportunity to attend any group she is willing to do so. No suicidal ideations now but she has had intermittent thoughts since arrival to the hospital. "I just feel really depressed." She does feel supported by her girlfriend and her son, with whom she is living. This is where she will return once she has been stabilized. Review of Systems Constitutional: Denies: fever, chills, weakness, weight change Eyes: Denies: eye pain, vision change Ears, Nose, Throat: Denies: ear pain, throat pain, dental pain, hearing loss, congestion Cardiovascular: Denies: chest pain, palpitations, dyspnea on exertion Respiratory: Denies: cough, dyspnea, wheezes Gastrointestinal: Denies: abdominal pain, nausea, vomiting, diarrhea, constipation Musculoskeletal: Denies: joint swelling, joint pain Neurological: Denies: headache, weakness, numbness, memory loss Psychiatric: Reports: depression, abnormal sleep pattern, suicidal ideation, anhedonia, hopelessness, irritability Objective: Exam Patient orientation: Yes Person, Yes Time, Yes Place Level of alertness: Alert Patient appearance: Unkempt Behavior: calm, cooperative Psychomotor activity: Slowed Eye contact: Minimal Contact Mood description: Depressed Affect description: dysphoric Speech pattern: Normal rate, Normal rhythm, Normal tone Speech volume: Normal Thought process: Intact Thought content: Yes Suicidal ideation Perceptual disturbances: No Auditory hallucinations, No Visual hallucinations Judgment: Limited Insight: Minimal Results - Vital Signs Vital Signs: Temp Pulse Resp BP Pulse Ox 98.2 F 105 16 143/95 100 06/22/17 19:51 06/22/17 19:51 06/22/17 19:51 06/22/17 19:51 06/21/17 14:41 Assessment and Plan (1) MDD (major depressive disorder), recurrent severe, without psychosis Current visit: Yes Status: Acute Plan: Continue hospitalization, Close observation, Suicide Precautions per unit protocol, Encourage participation in unit milieu, Group Therapy, Monitor sleep, Monitor appetite Additional Plan: We will continue Prozac at 40 mg dosage. Discontinue Seroquel. Start trazodone as needed for sleep. Encourage participation in group and unit activity. Risks, benefits, side effects, alternatives discussed w/pt: Yes Patient agreeable to treatment: Yes (2) Borderline personality disorder Current visit: Yes Status: Acute Plan: Continue hospitalization, Close observation, Suicide Precautions per unit protocol, Encourage participation in unit milieu, Group Therapy, Monitor sleep, Monitor appetite Additional Plan: Encouraged patient to continue to attend groups and gained positive coping strategies. Risks, benefits, side effects, alternatives discussed w/pt: Yes Patient agreeable to treatment: Yes Consult Discharge Plan - Plan Referrals: Avery Hernandez MD [Primary Care Provider] -
[2017-06-23] MEDS ORDERED: traZODone 50 MG TABLET PO PRN (21:00)
[2017-06-24] MEDS: BuPROPion XL (24 HR) 150 MG TABLET PO SCH (08:52)
[2017-06-24] MEDS: FLUoxetine 20 MG CAPSULE PO SCH (08:52)
[2017-06-24] MEDS: diazePAM 5 MG TABLET PO SCH (08:52)
[2017-06-24] MEDS: Famotidine 20 MG TABLET PO SCH (08:53)
[2017-06-24 10:02] VITALS: BP 118/83
--- NOTE | 2017-06-24 10:19 | Discharge Summary ---
Date of Encounter: 06/24/17 Time of Encounter: 09:30 Diagnosis - Discharge Diagnosis (1) MDD (major depressive disorder), recurrent severe, without psychosis Priority: Primary Status: Acute (2) Borderline personality disorder Priority: Secondary Status: Acute Medications - Discharge Medications Prescriptions: FLUoxetine HCl [Prozac] 20 mg PO DAILY #30 capsule traZODone [TraZODone] 50 mg PO HS PRN #30 tablet PRN Reason: Sleep Albuterol Sulfate [Proair Hfa] 2 puff IH Q4H PRN 02/26/16 [History] BuPROPion SR (12 HR) [Wellbutrin SR] 300 mg PO DAILY 02/26/16 [History] Pantoprazole Sodium [Protonix] 40 mg PO BID 02/26/16 [History] Ranitidine HCl [Zantac] 150 mg PO BID 02/26/16 [History] SUMAtriptan succinate [Imitrex] 50 mg PO Q2H PRN 02/26/16 [History] Diclofenac Sodium [Voltaren] 50 mg PO Q8HR PRN 06/21/17 [History] Levothyroxine [Synthroid] 125 mcg PO DAILY 06/21/17 [History] Paliperidone [Paliperidone ER] 3 mg PO DAILY 06/21/17 [History] diazePAM [Valium] 5 mg PO BID 06/21/17 [History] Montelukast [Singulair] 10 mg PO DAILY 06/22/17 [History] FLUoxetine HCl [Prozac] 20 mg PO DAILY #30 capsule 06/24/17 [Rx] traZODone [TraZODone] 50 mg PO HS PRN #30 tablet 06/24/17 [Rx] 3 Allergy/AdvReac Type Severity Reaction Status Date / Time No Known Allergies Allergy Verified 06/21/17 14:40 Provider Date of admission: 06/21/17 18:27 Primary care physician: PCP NONE Discharging clinician: Kimberley Franco Assessment and Plan - Patient/Caregiver Discharge Instructions Activity: resume usual activities as tolerated Diet: regular diet - Follow up Plan Follow up with: [facility] [Outside] - 11/20/17 10:40 am (The above appointment is with Dr. Franco for outpatient psychiatric assessment and medication management services. Please arrive 10 minutes early to complete the check-in process. Please bring your insurance card and photo ID. If you are unable to keep this appointment, 24 hour business notice of cancellation is expected. If you miss your new patient appointment without providing appropriate notice, you cannot be re-scheduled. This is the first available appointment. You may contact the office regularly to check for cancellations that may allow you to be seen sooner. The [facility] is the 1st building behind [facility] in [place], [place]. Please do not use GPS or mapping apps to locate the office, as they will take you to the wrong location. ) Avery Hernandez MD [Partnered Physician] - 07/09/17 2:15 pm (The above appointment is with Dr. Hernandez for primary health care and medication management services. Please arrive 10 minutes early to complete the check-in process. Please also bring your insurance card (or [employer] award letter), photo ID, and all medications in their original bottles to this appointment. If you are unable to keep this appointment, 24 hour business notice of cancellation is expected. This is the first available appointment. You may contact the office regularly to check for cancellations that may allow you to be seen sooner. ) Functional capacity at discharge: independent ambulation Overall status at discharge: Stable Disposition: Home, Self-Care Hospital Course Hospital course: Ms. Sauceda is a 26 year old female with major depressive disorder and borderline personality disorder who presented to the hospital with increasing depression and suicidal ideations. Patient was admitted to for psychiatric stabilization. She was incorporated into the therapeutic milieu and offer group and individual as well as recreational therapy. She was placed on suicide precautions and close observation per unit protocol. Patient was restarted on home meds Wellbutrin, and Invega. She was also started on Prozac for depression symptoms. Patient was given trazodone as needed for sleep. She was also given Valium for anxiety which was a home medication. Patient tolerated her medication changes well and denied side effects. Throughout the course of the hospital stay her mood improved. Patient was interactive with peers and staff inappropriately while on the unit. She reports that she is interested in following up with a psychiatrist and a counselor. Patient feels supported by her as well as her child. At the time of discharge she denied suicidal or homicidal ideation, intent, or plan. She will continue her treatment as an outpatient and return to the hospital if her symptoms worsen. She is discharged in stable condition. - Time Spent with Patient Total time spent providing and/or coordinating discharge services: Quality - Multiple Antipsychotics Patient discharged on 2 or more antipsychotic medications: No Procedures - Procedures Procedures: Medication Management, Crisis Stabilization, Supportive Therapy, Group Therapy, Psychoeducational Therapy Mental Status Exam - Mental Status Exam Patient orientation: Yes Person, Yes Time, Yes Place Level of alertness: Alert Patient appearance: Appropriate, Well Groomed Behavior: calm, cooperative Psychomotor activity: Normal Eye contact: Maintains Eye Contact Mood description: Euthymic/stable Affect description: congruent with mood, full range Speech pattern: Normal rate, Normal rhythm, Normal tone Speech Volume: Normal Thought process: Linear, Goal Oriented Thought Content: No Suicidal ideation, No Homicidal ideation, No Overt delusions Perceptual Disturbances: No Auditory hallucinations, No Visual hallucinations Judgment: Limited Insight: Partial
== END 2017-06-24 11:10 | disposition home or self-care (01) | DRG 885 ==
LOC: EMEROO 14:35 → 1ANU 18:27
PROVIDERS: ADMIT Psychiatry & Neurology Psychiatry; ATTEND Psychiatry & Neurology Psychiatry

== ENCOUNTER 2017-12-10 07:43 | Inpatient (IN) ==
--- NOTE | 2017-12-10 08:01 | Emergency Department Note ---
Disposition Clinical Impression: Pneumonia Qualifiers: Pneumonia type: due to unspecified organism Laterality: left Lung location: unspecified part of lung Qualified Code(s): J18.9 - Pneumonia, unspecified organism Disposition: Admitted As Inpatient Condition: Fair Referrals: Jersey Guy PAC [Primary Care Provider] - Forms: ED Satisfaction Letter URI/Sore Throat HPI - General Chief Complaint: ED Upper Respiratory Infection Stated Complaint: "cough,hurts to breathe,body aches" Time Seen by Provider: 12/10/17 07:49 Source: patient Mode of arrival: ambulatory Limitations: no limitations Nursing Notes Reviewed: Yes Vital Signs Reviewed: Yes - History of Present Illness HPI Narrative: 27 year old female previous smoker presents with body ache and cough. Pt stated the symptoms started on Friday (4 days ago) with body ache and dry cough. She had fever 104 on Friday. pt visited Urgent care had negative flu. She was sent home with Z-pack and Benzonate. Pt reported worsening cough and body ache since then. She started cough some mucus out today. She felt chest hurt when cough. No shortness of breath. no ear pain, no sore throat. Had ear tubes in October this year, tonsil removed. Pt Subjective Complaint: fever, cough, flu symptoms Onset (ago): day(s) (4) Duration: gradually worsening Improves with: nothing Associated symptoms: Reports: fever. Denies: voice changes - Related Data Home Medications Medication Instructions Recorded Confirmed Albuterol Sulfate [Proair Hfa] 2 puff IH Q4H PRN 02/26/16 12/10/17 Pantoprazole Sodium [Protonix] 40 mg PO BID 02/26/16 12/10/17 Ranitidine HCl [Zantac] 150 mg PO BID 02/26/16 12/10/17 diazePAM [Valium] 5 mg PO BID 06/21/17 12/10/17 Montelukast [Singulair] 10 mg PO DAILY 06/22/17 12/10/17 BuPROPion XL (24 HR) [Wellbutrin 150 mg PO DAILY 12/10/17 12/10/17 XL] FLUoxetine HCl [Fluoxetine HCl] 80 mg PO DAILY 12/10/17 12/10/17 Levothyroxine Sodium 175 mcg PO QAM 12/10/17 12/10/17 Previous Rx's Medication Instructions Recorded traZODone [TraZODone] 50 mg PO HS PRN #30 tablet 06/24/17 Allergies Allergy/AdvReac Type Severity Reaction Status Date / Time No Known Allergies Allergy Verified 12/10/17 07:47 Constitutional: Reports: fever, weakness Eyes: Denies: eye pain, eye discharge, vision change ENT ED: Denies: ear pain, throat pain, dental pain Cardiovascular: Denies: chest pain, palpitations Respiratory: Reports: cough. Denies: dyspnea, wheezes, hemoptysis Gastrointestinal: Denies: abdominal pain, nausea, vomiting Genitourinary: Denies: urgency, dysuria, frequency Musculoskeletal: Denies: back pain, neck pain, joint swelling Integumentary: Denies: rash, abrasion, lesions Neurological: Denies: headache, weakness, numbness Psychiatric: Denies: anxiety, depression, suicidal thoughts Endocrine: Denies: fatigue, heat or cold intolerance Hematological/Lymphatic: Denies: easy bleeding, easy bruising Allergic/Immunologic: Denies: facial swelling, urticaria URI PMH - Past Medical History Medical history: Reports: asthma, thyroid disease Surgical history: Reports: , orthopedic, other, other Psychiatric history: Reports: anxiety, bipolar, depression SPED TEACHER history: Reports: no SPED TEACHER history Family history: Reports: no significant family history - Social History Smoking Status: Never smoker Alcohol use: Reports: none Drug use: Reports: none Physical Exam - General Limitations: no limitations General appearance: alert, in no apparent distress - Head Head exam: atraumatic, normal inspection - Eye Eye exam: Present: normal appearance. Absent: scleral icterus, conjunctival injection - Expanded ENT Exam TM/Canal: Erythema: Negative, Bulging: Negative, Effusion: Negative, Perforation : Negative (tubes in bilateral TM) Nose exam: negative: rhinorrhea, sinus tenderness Mouth exam: Present: normal external inspection Throat exam: Present: other (tonsil abscent) - Neck Neck exam: Present: normal inspection, full ROM, trachea midline. Absent: tenderness - Chest Chest inspection: Present: normal inspection, symmetric chest wall rise. Absent : tenderness - Respiratory Respiratory exam: Present: normal lung sounds bilaterally. Absent: respiratory distress, wheezes - Cardiovascular Cardiovascular exam: Present: normal rhythm, tachycardia - Abdominal Exam Abdominal exam: Present: soft, Non-Tender - Extremities Exam Extremities exam: Present: normal inspection, full ROM. Absent: tenderness - Back Exam Back exam: Present: normal inspection - Neurological Exam Neurological exam: Present: alert, oriented X3 - Psychiatric Psychiatric exam: Present: normal affect, normal mood. Absent: depressed - Skin Skin exam: Present: warm, intact Course Vital Signs Temperature 98.3 F 12/10/17 07:45 Pulse Rate 110 12/10/17 07:45 Respiratory Rate 22 12/10/17 07:45 Blood Pressure 124/81 12/10/17 07:45 O2 Sat by Pulse Oximetry 95 12/10/17 07:45 Temperature 98.3 F 12/10/17 07:45 Pulse Rate 103 12/10/17 10:31 Respiratory Rate 18 12/10/17 10:31 Blood Pressure 116/79 12/10/17 07:57 O2 Sat by Pulse Oximetry 97 12/10/17 10:31 Oxygen Delivery Oxygen Delivery Room Air Upper Respiratory Infection - MDM Narrative Medical decision making narrative: 27 year old female presents with body ache, cough and fever for 4 days. Worsening cough with chest pain and yellowish mucus since today. No shortness of breath. flu test negative in Urgent care. completed Z-pack yesterday without improvement. Physical exam: unremarkable vital signs except HR 110, bilateral TM no erythema, no effusion. Bilateral lungs sound clear, no wheezing, no crackers. pt coughed with yellowish drainage and blood stripe once in ER. Chest x-ray pending. impression: cough (bronchitis VS. Pneumonia), viral syndrome. 08:20 chest x-ray indicated pneumonia. Since pt failed z-pack outpatient, had hemoptysis in ED , will admit pt, start IV Levaquin in ER; Dr. August saw the pt and agrees the above plan. - Lab Data Result diagrams: 12/10/17 09:16 12/10/17 09:16 Lab Results 12/10/17 12/10/17 12/10/17 Range/Units 09:16 09:16 09:16 WBC 8.0 (4.3-11.1) K/mcL RBC 3.56 L (3.82-4.97) M/mcL Hgb 10.2 L (11.5-15.4) g/dL Hct 31.8 L (35.3-44.9) % MCV 89.3 (83.0-100.0) fL MCH 28.7 (28.0-33.3) pg MCHC 32.1 (31.6-35.5) g/dL RDW 15.5 H (11.5-14.5) % Plt Count 192 (140-400) K/mcL MPV 11.6 (9.4-12.4) fL Immature Gran % 2.0 (0-4) % Seg Neutrophils % 73.4 % Lymphocytes % 17.4 % Monocytes % 5.4 % Eosinophils % 1.4 % Basophils % 0.4 % Neutrophils # 5.9 (1.6-8.9) K/mcL Lymphocytes # 1.4 (0.6-4.6) K/mcL Monocytes # 0.4 (0.0-1.3) K/mcL Eosinophils # 0.1 (0.0-0.6) K/mcL Basophils # 0.0 (0.0-0.2) K/mcL Sodium 139 (136-145) mEq/L Potassium 3.7 (3.5-5.1) mEq/L Chloride 111 H (98-107) mEq/L Carbon Dioxide 23 (23-29) mEq/L BUN 7 (6-20) mg/dL Creatinine 0.96 (0.60-1.20) mg/dL Est GFR ( Amer) > 60 (> 60) Est GFR (Non-Af Amer) > 60 (> 60) BUN/Creatinine Ratio 7 (6-26) Glucose 85 (70-105) mg/dL Calculated Osmolality 285 (280-300) Lactic Acid 0.8 (0.5-2.2) mmol/L Calcium 9.1 (8.6-10.3) mg/dL Total Bilirubin 0.4 (0.3-1.0) mg/dL AST 40 H (13-39) Units/L ALT 64 H (7-52) Units/L Alkaline Phosphatase 104 (34-104) Units/L Serum Total Protein 6.4 (6.4-8.9) g/dL Albumin 3.2 L (3.5-5.7) g/dL Globulin 3.2 (2.4-3.5) g/dL Albumin/Globulin Ratio 1.0 L (1.1-2.2) - Radiology Data Radiology results reviewed: Yes I reviewed the patient's radiology results.
--- NOTE | 2017-12-10 09:05 | Emergency Department Note ---
START Narrative - START START: I examined this patient and my medical decision-making was reviewed with the Resident Physician. I agree with the documented findings, disposition and treatment plan as described except to the extent set forth below. 27-year-old female presented to the emergency room for cough. She was discovered to have a left-sided pneumonia. She had been on Zithromax. She has failed outpatient therapy and I feel she needs to be admitted at this point based on the appearance of the x-ray.
[2017-12-10] MEDS ORDERED: Levofloxacin 750 MG/150 ML 750 MG/150 ML BAG IVPB ONE (09:06)
[2017-12-10 09:32] LABS: Basophils % 0.4 %; Eosinophils # 0.1 K/mcL (0.0-0.6); Eosinophils % 1.4 %; Hematocrit 31.8 % (35.3-44.9); Hemoglobin 10.2 g/dL (11.5-15.4); Lymphocytes # 1.4 K/mcL (0.6-4.6); Lymphocytes % 17.4 %; Mean Corpuscular HGB Conc 32.1 g/dL (31.6-35.5); Mean Corpuscular Hemoglobin 28.7 pg (28.0-33.3); Mean Corpuscular Volume 89.3 fL (83.0-100.0); Mean Platelet Volume 11.6 fL (9.4-12.4); Monocytes # 0.4 K/mcL (0.0-1.3); Monocytes % 5.4 %; Neutrophils # 5.9 K/mcL (1.6-8.9); Platelet Count 192 K/mcL (140-400); Red Blood Count 3.56 M/mcL (3.82-4.97); Red Cell Distribution Width 15.5 % (11.5-14.5); Segmented Neutrophils % 73.4 %
[2017-12-10 09:53] LABS: Alanine Aminotransferase 64 Units/L (7-52); Albumin 3.2 g/dL (3.5-5.7); Alkaline Phosphatase 104 Units/L (34-104); Aspartate Amino Transferase 40 Units/L (13-39); BUN/Creatinine Ratio 7 (6-26); Bilirubin,Total 0.4 mg/dL (0.3-1.0); Blood Urea Nitrogen 7 mg/dL (6-20); Calcium 9.1 mg/dL (8.6-10.3); Carbon Dioxide 23 mEq/L (23-29); Chloride 111 mEq/L (98-107); Globulin 3.2 g/dL (2.4-3.5); Glucose 85 mg/dL (70-105); Osmolality,Calculated 285 (280-300); Potassium 3.7 mEq/L (3.5-5.1); Sodium 139 mEq/L (136-145); Total Protein 6.4 g/dL (6.4-8.9); eGFR For African Americans > 60 (> 60); eGFR For Non-African Americans > 60 (> 60)
[2017-12-10] MEDS ORDERED: Ibuprofen 800 MG TABLET PO ONE (10:21)
[2017-12-10] MEDS ORDERED: Ipratropium/Albuterol Neb 3 ML IH ONE (11:28)
[2017-12-10] MEDS ORDERED: Naloxone 0.4 MG/ML INJ IVP PRN (12:20)
[2017-12-10] MEDS ORDERED: traZODone 50 MG TABLET PO PRN (12:25)
--- NOTE | 2017-12-10 12:27 | Internal Med History&Physical ---
Date of Encounter: 12/10/17 Time of Encounter: 12:27 Internal Medicine - H&P: HPI Chief complaint: Cough, bodyaches Admitted From: Emergency Dept Plans for Post Hospital Care: Home History of present illness: Ms. Sauceda is a 27 year old female with history of asthma, who presents with complaints of cough and body aches. Patient reports a 4 day history of worsening dry cough, chest tightness, generalized myalgias, subjective fevers and chills. She presented to the urgent care 2 days ago, tested negative for Flu, was sent home on Z-Nate, which she has used with no improvement in her symptoms. She reports significant retrosternal chest pain, worse with inspiration. She also has associated shortness of breath and wheezing. Past Med Surg Social Fam HX - Past Medical History Medical history: asthma, thyroid disease Psychiatric history: anxiety, bipolar (borderline personality disorder), depression - Past Surgical History Surgical History: , orthopedic, other, other - Social History Smoking Status: Former smoker Smokeless Tobacco Status: No Alcohol use: none, occasionally Drug use: none Occupational status: unemployed Current living situation: Home, With Family Activity Level: Independent ambulation Recent Out of Country Travel Within the Last 8 Weeks: No Exposure or Possible Exposure to Illness During Travel: No - Additional Family History Additional family history: reviewed and found noncontributory Internal Medicine - H&P: Meds Albuterol Sulfate [Proair Hfa] 2 puff IH Q4H PRN 02/26/16 [History] Pantoprazole Sodium [Protonix] 40 mg PO BID 02/26/16 [History] Ranitidine HCl [Zantac] 150 mg PO BID 02/26/16 [History] diazePAM [Valium] 5 mg PO BID 06/21/17 [History] Montelukast [Singulair] 10 mg PO DAILY 06/22/17 [History] traZODone [TraZODone] 50 mg PO HS PRN #30 tablet 06/24/17 [Rx] BuPROPion XL (24 HR) [Wellbutrin XL] 150 mg PO DAILY 12/10/17 [History] FLUoxetine HCl [Fluoxetine HCl] 80 mg PO DAILY 12/10/17 [History] Levothyroxine Sodium 175 mcg PO QAM 12/10/17 [History] 3 Allergy/AdvReac Type Severity Reaction Status Date / Time No Known Allergies Allergy Verified 12/10/17 07:47 All Systems PM: A 10-system review of systems was performed and is negative for pertinent findings except as documented above in the HPI. - Constitutional Constitutional: chills, fever(s), malaise - EENT Eyes: no change in vision, no discharge, no pain, no photophobia Ears: no ear discharge, no ear pain, no tinnitus Nose, mouth and throat: no dysphagia, no nasal discharge, no neck pain, no sore throat - Cardiovascular Cardiovascular ROS IM: chest pain, dyspnea - Respiratory Respiratory: cough, dyspnea, wheezing, pain on inspiration - Gastrointestinal Gastrointestinal: no abdominal pain, no diarrhea, no hematemesis, no hematochezia, no melena, no nausea, no vomiting - Genitourinary Genitourinary: no change in urinary stream, no dysuria, no flank pain, no hematuria - Musculoskeletal Musculoskeletal ROS IM: myalgias, no numbness, no tingling - Integumentary Integumentary IM: no rash, no unusual bruising - Neurological Neurological ROS: no confusion, no convulsions, no focal weakness, no numbness, no tingling, no tremor(s) - Hematologic/Lymphatic Hematologic/Lymphatic: no easy bruising - Constitutional Vitals: Temp Pulse Resp BP Pulse Ox 98.3 F 113 18 132/84 97 12/10/17 07:45 12/10/17 12:13 12/10/17 12:13 12/10/17 12:13 12/10/17 12:13 General appearance: Present: A&O X 3, morbidly obese, answers questions appropriately - Respiratory Respiratory exam: Present: CTAB. Absent: accessory muscle use, rales, rhonchi, wheezes - Cardiovascular Cardiovascular exam: Present: RRR, +S1, +S2, tachycardia. Absent: diastolic murmur, gallop, rubs, systolic murmur - GI/Abdominal GI/Abdominal exam: Present: normal bowel sounds, soft (obese), no peritoneal signs. Absent: distended, tenderness - Extremities Exam Extremities exam: Present: full ROM, warm, radial pulses palpable and symmetrical. Absent: calf tenderness, cyanotic, pedal edema - Neurological Exam Neurological exam: Present: CN II-XII intact, oriented X3, no focal deficits. Absent: pronater drift, facial droop, speech deficit - Skin Skin exam: Present: dry, intact Internal Med - H&P Results - Labs CBC & Chem 7: 12/10/17 09:16 12/10/17 09:16 - Assessment and plan (1) Pneumonia Current Visit: Yes Status: Acute Assessment and plan: Presents with respiratory symptoms, failed outpatient antibiotics with Z-Nate; chest XRay reviewed independently- left perihilar consolidation; continue IV Levaquin and f/up blood cultures; continue antitussives, supportive care and supplemental O2; Qualifiers: Pneumonia type: due to unspecified organism Laterality: left Lung location: unspecified part of lung Qualified Code(s): J18.9 - Pneumonia, unspecified organism (2) Hypothyroidism Current Visit: Yes Status: Chronic Assessment and plan: resume Levothyroxine; Qualifiers: Hypothyroidism type: unspecified Qualified Code(s): E03.9 - Hypothyroidism , unspecified (3) Asthma Current Visit: Yes Status: Chronic Assessment and plan: continue PRN bronchodilator nebs; Qualifiers: Asthma severity: mild Asthma persistence: intermittent Asthma complication type: uncomplicated Qualified Code(s): J45.20 - Mild intermittent asthma, uncomplicated (4) Borderline personality disorder Current Visit: Yes Status: Chronic Assessment and plan: resume home meds; (5) MDD (major depressive disorder), recurrent severe, without psychosis Current Visit: Yes Status: Chronic Assessment and plan: had a recent hospitalization for this; mood stable currently; continue home meds ; - Time Spent With Patient Total time spent is greater than 50% in coordination of care (as documented) at patient's floor/unit and/or counseling patient:
[2017-12-10] MEDS: Ringers Solution, Lactated 1,000 ML IVC SCH (13:20)
[2017-12-10] MEDS: Ipratropium/Albuterol Neb 3 ML IH PRN ×2 (18:30→23:41)
[2017-12-10] MEDS: diazePAM 5 MG TABLET PO SCH (20:28)
[2017-12-11 04:56] LABS: Basophils % 0.5 %; Eosinophils # 0.2 K/mcL (0.0-0.6); Eosinophils % 2.7 %; Hematocrit 31.6 % (35.3-44.9); Hemoglobin 10.3 g/dL (11.5-15.4); Immature Granulocytes % 2.9 % (0-4); Lymphocytes # 1.9 K/mcL (0.6-4.6); Lymphocytes % 30.5 %; Mean Corpuscular HGB Conc 32.6 g/dL (31.6-35.5); Mean Corpuscular Hemoglobin 28.9 pg (28.0-33.3); Mean Corpuscular Volume 88.8 fL (83.0-100.0); Mean Platelet Volume 12.6 fL (9.4-12.4); Monocytes # 0.4 K/mcL (0.0-1.3); Monocytes % 6.6 %; Neutrophils # 3.5 K/mcL (1.6-8.9); Platelet Count 170 K/mcL (140-400); Red Blood Count 3.56 M/mcL (3.82-4.97); Red Cell Distribution Width 15.6 % (11.5-14.5); Segmented Neutrophils % 56.8 %
[2017-12-11] MEDS: *HR* Enoxaparin 40 MG/0.4 ML SYRINGE SQ SCH (05:01)
[2017-12-11 05:11] LABS: Alanine Aminotransferase 46 Units/L (7-52); Albumin 3.1 g/dL (3.5-5.7); Albumin/Globulin Ratio 1.1 (1.1-2.2); Alkaline Phosphatase 93 Units/L (34-104); Aspartate Amino Transferase 27 Units/L (13-39); BUN/Creatinine Ratio 9 (6-26); Bilirubin,Direct 0.1 mg/dL (0.0-0.2); Bilirubin,Indirect 0.2 mg/dL (0.0-1.2); Bilirubin,Total 0.3 mg/dL (0.3-1.0); Blood Urea Nitrogen 8 mg/dL (6-20); Calcium 8.7 mg/dL (8.6-10.3); Carbon Dioxide 18 mEq/L (23-29); Chloride 117 mEq/L (98-107); Globulin 2.7 g/dL (2.4-3.5); Glucose 93 mg/dL (70-105); Osmolality,Calculated 288 (280-300); Potassium 4.1 mEq/L (3.5-5.1); Sodium 140 mEq/L (136-145); Total Protein 5.8 g/dL (6.4-8.9); eGFR For African Americans > 60 (> 60); eGFR For Non-African Americans > 60 (> 60)
[2017-12-11] MEDS: Ipratropium/Albuterol Neb 3 ML IH PRN ×3 (08:42→22:02)
[2017-12-11] MEDS: Ringers Solution, Lactated 1,000 ML IVC SCH (09:07)
[2017-12-11] MEDS: Levofloxacin 750 MG/150 ML 750 MG/150 ML BAG IVPB SCH (09:08)
[2017-12-11] MEDS: BuPROPion XL (24 HR) 150 MG TABLET PO SCH (10:12)
[2017-12-11] MEDS: FLUoxetine 20 MG CAPSULE PO SCH (10:12)
[2017-12-11] MEDS: diazePAM 5 MG TABLET PO SCH ×2 (10:12→20:19)
[2017-12-11] MEDS: Acetaminophen 325 MG TABLET PO PRN (11:11)
--- NOTE | 2017-12-11 11:13 | Internal Med Progress Note ---
Date of Encounter: 12/11/17 Time of Encounter: 10:00 - Assessment and plan (1) MDD (major depressive disorder), recurrent severe, without psychosis Current Visit: Yes Status: Chronic Assessment and plan: had a recent hospitalization for this; mood stable currently; continue home meds ; (2) Borderline personality disorder Current Visit: Yes Status: Chronic Assessment and plan: continue home meds; (3) Pneumonia Current Visit: Yes Status: Acute Assessment and plan: Presents with respiratory symptoms, failed outpatient antibiotics with Z-Nate; chest XRay reviewed independently- left perihilar consolidation; continue IV Levaquin and f/up blood cultures; check urinary legionella and strep Ag continue antitussives, supportive care Not hypoxic Qualifiers: Pneumonia type: due to unspecified organism Laterality: left Lung location: unspecified part of lung Qualified Code(s): J18.9 - Pneumonia, unspecified organism (4) Hypothyroidism Current Visit: Yes Status: Chronic Assessment and plan: continue Levothyroxine; Qualifiers: Hypothyroidism type: unspecified Qualified Code(s): E03.9 - Hypothyroidism , unspecified (5) Asthma Current Visit: Yes Status: Chronic Assessment and plan: continue PRN bronchodilator nebs; Qualifiers: Asthma severity: mild Asthma persistence: intermittent Asthma complication type: uncomplicated Qualified Code(s): J45.20 - Mild intermittent asthma, uncomplicated (6) Morbid obesity with BMI of 45.0-49.9, adult Current Visit: Yes Status: Chronic Assessment and plan: lifestyle modification (7) Anemia Current Visit: Yes Status: Chronic Qualifiers: Anemia type: unspecified type Qualified Code(s): D64.9 - Anemia, unspecified - Time Spent With Patient Total time spent is greater than 50% in coordination of care (as documented) at patient's floor/unit and/or counseling patient: - Subjective Interval history: Seen and examined at bedside. New complaints. Chest pain is improving. - Constitutional Vitals: Temp Pulse Resp BP Pulse Ox 98.5 F 85 18 125/69 96 12/11/17 11:06 12/11/17 11:06 12/11/17 11:06 12/11/17 11:06 12/11/17 11:06 General appearance: Present: A&O X 3, morbidly obese, no acute distress, answers questions appropriately - Head Head exam: Present: atraumatic, normocephalic - Eye Eye exam: Present: PERRL, conjuntiva pink, sclera anicteric Pupils: Present: PERRL - Neck Neck exam general surgery: Present: supple, trachea midline. Absent: lymphadenopathy - Respiratory Respiratory exam: Present: rhonchi (LML) - Cardiovascular Cardiovascular exam: Present: RRR, +S1, +S2. Absent: diastolic murmur, gallop, rubs, systolic murmur - GI/Abdominal GI/Abdominal exam: Present: normal bowel sounds, soft, no peritoneal signs. Absent: distended, tenderness - Extremities Exam Extremities exam: Present: warm, radial pulses palpable and symmetrical. Absent : calf tenderness, cyanotic, pedal edema - Neurological Exam Neurological exam: Present: alert, CN II-XII intact, oriented X3, no focal deficits. Absent: pronater drift, facial droop, speech deficit - Skin Skin exam: Present: dry, intact Internal Medicine: Result - Labs CBC & Chem 7: 12/11/17 04:07 12/11/17 04:07 Labs: Short CBC 12/11/17 Range/Units 04:07 WBC 6.2 (4.3-11.1) K/mcL Hgb 10.3 L (11.5-15.4) g/dL Hct 31.6 L (35.3-44.9) % Plt Count 170 (140-400) K/mcL Neutrophils # 3.5 (1.6-8.9) K/mcL BMP 12/11/17 04:07 Sodium 140 Potassium 4.1 Chloride 117 H Carbon Dioxide 18 L BUN 8 Creatinine 0.90 Glucose 93 Calcium 8.7 Liver Function 12/11/17 Range/Units 04:07 Total Bilirubin 0.3 (0.3-1.0) mg/dL Direct Bilirubin 0.1 (0.0-0.2) mg/dL AST 27 (13-39) Units/L ALT 46 (7-52) Units/L Alkaline Phosphatase 93 (34-104) Units/L Albumin 3.1 L (3.5-5.7) g/dL Consult Discharge Plan - Plan Referrals: Jersey Guy, PAC [Primary Care Provider] -
[2017-12-12] MEDS: *HR* Enoxaparin 40 MG/0.4 ML SYRINGE SQ SCH (06:01)
[2017-12-12] MEDS: Acetaminophen 325 MG TABLET PO PRN (08:44)
[2017-12-12] MEDS: BuPROPion XL (24 HR) 150 MG TABLET PO SCH (08:45)
[2017-12-12] MEDS: Levofloxacin 750 MG/150 ML 750 MG/150 ML BAG IVPB SCH (08:45)
[2017-12-12] MEDS: FLUoxetine 20 MG CAPSULE PO SCH (08:45)
[2017-12-12] MEDS: diazePAM 5 MG TABLET PO SCH (08:45)
[2017-12-12] MEDS: Ipratropium/Albuterol Neb 3 ML IH PRN (09:18)
[2017-12-12 10:36] VITALS: BP 103/70
--- NOTE | 2017-12-12 10:45 | Discharge Summary ---
- NOTES TO OUTPATIENT PROVIDER Notes to Outpatient Provider: Admitted for L PNA comunity acquired with failure of out-patient therapy. Received 3 days of IV Levaquin in-patient, discharged on 4 more po doses. No changes in home meds, no hypoxia Date of Encounter: 12/12/17 Time of Encounter: 09:45 - Discharge Diagnosis (1) MDD (major depressive disorder), recurrent severe, without psychosis Priority: Secondary Status: Chronic (2) Borderline personality disorder Priority: Secondary Status: Chronic (3) Pneumonia Priority: Primary Status: Acute Qualifiers: Pneumonia type: due to unspecified organism Laterality: left Lung location: unspecified part of lung Qualified Code(s): J18.9 - Pneumonia, unspecified organism (4) Hypothyroidism Priority: Secondary Status: Chronic Qualifiers: Hypothyroidism type: unspecified Qualified Code(s): E03.9 - Hypothyroidism , unspecified (5) Asthma Priority: Secondary Status: Chronic Qualifiers: Asthma severity: mild Asthma persistence: intermittent Asthma complication type: uncomplicated Qualified Code(s): J45.20 - Mild intermittent asthma, uncomplicated (6) Morbid obesity with BMI of 45.0-49.9, adult Priority: Secondary Status: Chronic (7) Anemia Priority: Secondary Status: Chronic Qualifiers: Anemia type: unspecified type Qualified Code(s): D64.9 - Anemia, unspecified Hospital course: Ms. Sauceda is a 27 year old female with multiple psych diagnoses, morbid obesity , she was admitted to the hospital after a failure of out-patient therapy for PNA with Azithromycin. She was not hypoxic nor septic. She was treated with IV Levaquin and has made significant improvement with supportive care CXR showed LLL PNA and Urine legionella and Strep Ag were WNL, CBC showed chronic anemia She is medically stable to be discharged home to complete 4 more doses orally Rest of home meds or chronic conditions unchanged Plan of care discussed , verbalized understanding Discharge discussed with: patient, nurse, case management - Time Spent with Patient Total time spent providing and/or coordinating discharge services: Less than 30 minutes - Discharge Medications Home Medications: Albuterol Sulfate [Proair Hfa] 2 puff IH Q4H PRN 02/26/16 [History] Pantoprazole Sodium [Protonix] 40 mg PO BID 02/26/16 [History] Ranitidine HCl [Zantac] 150 mg PO BID 02/26/16 [History] diazePAM [Valium] 5 mg PO BID 06/21/17 [History] Montelukast [Singulair] 10 mg PO DAILY 06/22/17 [History] traZODone [TraZODone] 50 mg PO HS PRN #30 tablet 06/24/17 [Rx] BuPROPion XL (24 HR) [Wellbutrin XL] 150 mg PO DAILY 12/10/17 [History] FLUoxetine HCl [Fluoxetine HCl] 80 mg PO DAILY 12/10/17 [History] Levothyroxine Sodium 175 mcg PO QAM 12/10/17 [History] Allergies/Adverse Reactions: 3 Allergy/AdvReac Type Severity Reaction Status Date / Time No Known Allergies Allergy Verified 12/10/17 07:47 Date of admission: 12/10/17 12:20 Primary care physician: Jersey Guy Discharging clinician: Jose M Nina Anticipated date of discharge: 12/12/17 - Constitutional Vitals: Temp Pulse Resp BP Pulse Ox 98.8 F 99 18 103/70 95 12/12/17 10:32 12/12/17 10:32 12/12/17 10:32 12/12/17 10:32 12/12/17 10:32 General appearance: Present: A&O X 3, morbidly obese, no acute distress, answers questions appropriately - Head Head exam: Present: atraumatic, normocephalic - Eye Eye exam: Present: PERRL, conjuntiva pink, sclera anicteric Pupils: Present: PERRL - Neck Neck exam general surgery: Present: supple, trachea midline. Absent: lymphadenopathy - Respiratory Respiratory exam: Present: CTAB. Absent: accessory muscle use, rales, rhonchi, wheezes - Cardiovascular Cardiovascular exam: Present: RRR, +S1, +S2. Absent: diastolic murmur, gallop, rubs, systolic murmur - GI/Abdominal GI/Abdominal exam: Present: normal bowel sounds, soft, no peritoneal signs. Absent: distended, tenderness - Extremities Exam Extremities exam: Present: warm, radial pulses palpable and symmetrical. Absent : calf tenderness, cyanotic, pedal edema - Neurological Exam Neurological exam: Present: alert, CN II-XII intact, oriented X3, no focal deficits. Absent: pronater drift, facial droop, speech deficit - Skin Skin exam: Present: dry, intact - Patient Status Disposition: Home, Self-Care Condition: Good Functional capacity at discharge: independent ambulation Overall status at discharge: patient is back to baseline - Discharge Instructions Follow Up With: Jersey Guy PAC [Primary Care Provider] - - Diet and Activity Activity: resume usual activities as tolerated Diet: low fat, low cholesterol, regular diet
== END 2017-12-12 12:05 | disposition home or self-care (01) | DRG 194 ==
LOC: 3ANU 07:43 → EMEROO 07:43 → 3ANU 12:54
PROVIDERS: ADMIT Internal Medicine; ATTEND Internal Medicine

== ENCOUNTER 2018-10-19 10:57 | Inpatient (IN) ==
[2018-10-19] MEDS ORDERED: 0.9 % Sodium Chloride 1,000 ML IVC ONE ×2 (11:28→11:37)
[2018-10-19] MEDS ORDERED: Metoclopramide 10 MG/2 ML VIAL IVP ONE (11:29)
--- NOTE | 2018-10-19 11:32 | Emergency Department Note ---
Disposition Clinical Impression: Colitis, Vomiting, Intractable abdominal pain, Epigastric abdominal pain Intractable vomiting Qualifiers: Vomiting type: unspecified Nausea presence: with nausea Qualified Code(s): R11.2 - Nausea with vomiting, unspecified Disposition: Admitted As Inpatient Condition: Good Abdominal Pain HPI - General Chief Complaint: ED Abdominal Pain Stated Complaint: abd pain/NVD/Fever Time Seen by Provider: 10/19/18 11:24 Source: patient Mode of arrival: ambulatory Limitations: no limitations Nursing Notes Reviewed: Yes Vital Signs Reviewed: Yes - History of Present Illness HPI Narrative: Patient presents to the ED with the chief complaint of abdominal pain, nausea and vomiting. This is the patient's fourth visit for the same symptoms. Pain started about 6 days ago. The epigastric, sharp, stabbing and burning in nature. She states that she had a fever up to 105 that was about 3 days ago via temporal thermometer. She states that the pain is in her epigastrium. It is constant and is worse with eating and drinking. She reports over the last 48 hours. She has been unable to eat or drink anything. She has is supposed to be on multiple psychiatric medications and states that she has been unable to keep these down as well. She denies any chills, chest pain or shortness of breath. She denies any other abdominal pain. She has been having some diarrhea, but none Melena or hematochezia. There is no vaginal bleeding, discharge or dysuria. No rashes or pain or swelling in her legs. No previous abdominal surgeries other than a section 5 years ago. Pain Scale: 10 - Related Data Home Medications Medication Instructions Recorded Confirmed Albuterol Sulfate [Proair Hfa] 2 puff IH Q4H PRN 02/26/16 10/20/18 Pantoprazole Sodium [Protonix] 40 mg PO BID 02/26/16 10/20/18 Montelukast [Singulair] 10 mg PO HS 06/22/17 10/20/18 BuPROPion XL (24 HR) [Wellbutrin 300 mg PO DAILY 12/10/17 10/20/18 Xl] Levothyroxine Sodium 175 mcg PO QAM 12/10/17 10/20/18 Brexpiprazole [Rexulti] 2 mg PO DAILY 10/20/18 10/20/18 Diclofenac Sodium [Voltaren] 75 mg PO DAILY PRN 10/20/18 10/20/18 Doxepin HCl 10 - 20 mg PO HS 10/20/18 10/20/18 Eletriptan HBr [Relpax] 40 mg PO DAILY PRN 10/20/18 10/20/18 FLUoxetine HCl [Prozac] 20 mg PO DAILY 10/20/18 10/20/18 Fremanezumab-Vfrm [Ajovy] 225 mg SQ QMONTH 10/20/18 10/20/18 Gabapentin [Neurontin] 300 mg PO HS 10/20/18 10/20/18 Metformin HCl [Metformin ER 500 mg PO HS 10/20/18 10/20/18 Gastric] Norgestimate-Ethinyl Estradiol 1 tab PO DAILY 10/20/18 10/20/18 [Sprintec 28 Day Tablet] Tizanidine HCl 2 mg PO HS PRN 10/20/18 10/20/18 diazePAM [Valium] 5 mg PO TID PRN 10/20/18 10/20/18 Previous Rx's Medication Instructions Recorded Ondansetron ODT [Zofran ODT] 4 mg SL Q6HR #12 tab.rapdis 10/15/18 PredniSONE [Deltasone] 40 mg PO DAILY #10 tablet 10/15/18 Ciprofloxacin [Cipro] 500 mg PO BID 5 Days #10 tablet 10/21/18 Promethazine [Phenergan] 12.5 mg PO Q6HR #8 tablet 10/21/18 metroNIDAZOLE [Flagyl] 500 mg PO TID 5 Days #15 tablet 10/21/18 Allergies Allergy/AdvReac Type Severity Reaction Status Date / Time shellfish derived Allergy Hives Verified 10/17/18 02:31 Review of Systems: As reviewed in the HPI. All other systems reviewed are negative or normal. Abdominal Pain PMH - Past Medical History Medical history: Reports: asthma, other Female Surgical History: Reports: Adenoidectomy, , orthopedic, other, sinus surgery, Tonsillectomy DRUM SANDER history: Reports: no DRUM SANDER history, endometriosis, polycystic ovary syndrome Psychiatric history: Reports: anxiety, bipolar, depression, other - Social History Smoking status: Former smoker Alcohol use: Reports: rarely Drug use: Reports: none Physical Exam CONSTITUTIONAL: [well appearing, alert and in no acute distress] EYES: [EOMI, clear conjunctiva, PERRLA] HENT: [Normocephalic, atraumatic, moist mucus membranes, normal oropharynx] NECK: [normal inspection, full ROM, trachea midline, no obvious swelling] PULMONARY: [normal lung sounds bilaterally, normal chest rise and fall, no respiratory distress or stridor, no wheezes, no rales, no rhonchi CARDIOVASCULAR: [regular rate, regular rhythm, normal heart sounds, no murmurs, distal extremities are warm and well perfused] GASTROINSTESTINAL: [soft, mildly tender in the epigastrium, non-rigid, non- distended, no guarding, no rebound, normal bowel sounds] GENITOURINARY/RECTAL: [deferred] NEUROLOGIC: [Alert, oriented x3, normal speech, moves all extremities] EXTREMITIES: [Normal inspection, full ROM, no tenderness, no pedal edema, normal capillary refill] MUSCULOSKELETAL: [no gross deformities, atraumatic] SKIN: [No cyanosis, no diaphoresis, normal color, warm, no rash] PSYCHIATRIC: [normal mood and affect] - General Limitations: no limitations General appearance: alert, in no apparent distress Course Vital Signs Temperature 98.0 F 10/19/18 11:13 Pulse Rate 79 10/19/18 11:13 Respiratory Rate 18 10/19/18 11:13 Blood Pressure 133/93 10/19/18 11:13 O2 Sat by Pulse Oximetry 98 10/19/18 11:13 Temperature 98.3 F 10/19/18 14:49 Pulse Rate 73 10/19/18 15:29 Respiratory Rate 18 10/19/18 15:29 Blood Pressure 119/70 10/19/18 15:29 O2 Sat by Pulse Oximetry 100 10/19/18 15:29 Oxygen Delivery Oxygen Delivery Room Air Abdominal Pain - Lab Data Result diagrams: 10/21/18 05:26 10/21/18 05:26 Lab Results 10/19/18 10/19/18 10/19/18 Range/Units 11:36 11:36 11:36 WBC 9.2 (4.3-11.1) K/mcL RBC 3.68 L (3.82-4.97) M/mcL Hgb 10.8 L (11.5-15.4) g/dL Hct 33.1 L (35.3-44.9) % MCV 89.9 (83.0-100.0) fL MCH 29.3 (28.0-33.3) pg MCHC 32.6 (31.6-35.5) g/dL RDW 14.4 (11.5-14.5) % Plt Count 300 (140-400) K/mcL MPV 11.2 (9.4-12.4) fL Immature Gran % 1.5 (0-4) % Seg Neutrophils % 66.9 % Lymphocytes % 22.7 % Monocytes % 8.3 % Eosinophils % 0.1 % Basophils % 0.5 % Neutrophils # 6.2 (1.6-8.9) K/mcL Lymphocytes # 2.1 (0.6-4.6) K/mcL Monocytes # 0.8 (0.0-1.3) K/mcL Eosinophils # 0.0 (0.0-0.6) K/mcL Basophils # 0.1 (0.0-0.2) K/mcL Reactive Lymphocytes Present A (Not Present) Platelet Estimate Normal (Normal) Sodium 138 (136-145) mEq/L Potassium 3.1 L (3.5-5.1) mEq/L Chloride 105 (98-107) mEq/L Carbon Dioxide 25 (23-29) mEq/L BUN 14 (6-20) mg/dL Creatinine 1.08 (0.60-1.20) mg/dL Est GFR ( Amer) > 60 (> 60) Est GFR (Non-Af Amer) > 60 (> 60) BUN/Creatinine Ratio 13 (6-26) Glucose 96 (70-105) mg/dL Calculated Osmolality 286 (280-300) Lactic Acid 0.9 (0.5-2.2) mmol/L Calcium 9.5 (8.6-10.3) mg/dL Total Bilirubin 0.3 (0.3-1.0) mg/dL Direct Bilirubin 0.0 (0.0-0.2) mg/dL Indirect Bilirubin 0.3 (0.0-1.2) mg/dL AST 13 (13-39) Units/L ALT 13 (7-52) Units/L Alkaline Phosphatase 64 (34-104) Units/L Serum Total Protein 7.9 (6.4-8.9) g/dL Albumin 3.9 (3.5-5.7) g/dL Globulin 4.0 H (2.4-3.5) g/dL Albumin/Globulin Ratio 1.0 L (1.1-2.2) Lipase 183 H (11-82) Units/L Urine Color (Yellow) Urine Clarity (Clear) Urine pH (5.0-8.0) pH Units Ur Specific [place] (1.010-1.025) Urine Protein (Neg-Trace) mg/dL Urine Glucose (UA) (Normal) mg/dL Urine Ketones (Negative) mg/dL Urine Blood (Negative) Urine Nitrite (Negative) Urine Bilirubin (Negative) Urine Urobilinogen (Normal) mg/dL Ur Leukocyte Esterase (Negative) Urine Microscopic RBC (0-3) per hpf Urine Microscopic WBC (0-3) per hpf Ur Squamous Epith Cells (None-Few) per lpf Urine Bacteria (None-Few) per hpf Hyaline Casts (None-Few) per lpf Ur Culture Indicated? (NO) Urine Test (Negative) 10/19/18 10/19/18 Range/Units 12:40 12:40 WBC (4.3-11.1) K/mcL RBC (3.82-4.97) M/mcL Hgb (11.5-15.4) g/dL Hct (35.3-44.9) % MCV (83.0-100.0) fL MCH (28.0-33.3) pg MCHC (31.6-35.5) g/dL RDW (11.5-14.5) % Plt Count (140-400) K/mcL MPV (9.4-12.4) fL Immature Gran % (0-4) % Seg Neutrophils % % Lymphocytes % % Monocytes % % Eosinophils % % Basophils % % Neutrophils # (1.6-8.9) K/mcL Lymphocytes # (0.6-4.6) K/mcL Monocytes # (0.0-1.3) K/mcL Eosinophils # (0.0-0.6) K/mcL Basophils # (0.0-0.2) K/mcL Reactive Lymphocytes (Not Present) Platelet Estimate (Normal) Sodium (136-145) mEq/L Potassium (3.5-5.1) mEq/L Chloride (98-107) mEq/L Carbon Dioxide (23-29) mEq/L BUN (6-20) mg/dL Creatinine (0.60-1.20) mg/dL Est GFR ( Amer) (> 60) Est GFR (Non-Af Amer) (> 60) BUN/Creatinine Ratio (6-26) Glucose (70-105) mg/dL Calculated Osmolality (280-300) Lactic Acid (0.5-2.2) mmol/L Calcium (8.6-10.3) mg/dL Total Bilirubin (0.3-1.0) mg/dL Direct Bilirubin (0.0-0.2) mg/dL Indirect Bilirubin (0.0-1.2) mg/dL AST (13-39) Units/L ALT (7-52) Units/L Alkaline Phosphatase (34-104) Units/L Serum Total Protein (6.4-8.9) g/dL Albumin (3.5-5.7) g/dL Globulin (2.4-3.5) g/dL Albumin/Globulin Ratio (1.1-2.2) Lipase (11-82) Units/L Urine Color Yellow (Yellow) Urine Clarity Clear (Clear) Urine pH 7.5 (5.0-8.0) pH Units Ur Specific [place] 1.023 (1.010-1.025) Urine Protein Trace (Neg-Trace) mg/dL Urine Glucose (UA) Normal (Normal) mg/dL Urine Ketones 15 H (Negative) mg/dL Urine Blood Negative (Negative) Urine Nitrite Negative (Negative) Urine Bilirubin Negative (Negative) Urine Urobilinogen Normal (Normal) mg/dL Ur Leukocyte Esterase Trace H (Negative) Urine Microscopic RBC 0-3 (0-3) per hpf Urine Microscopic WBC 0-3 (0-3) per hpf Ur Squamous Epith Cells Many H (None-Few) per lpf Urine Bacteria None Seen (None-Few) per hpf Hyaline Casts None Seen (None-Few) per lpf Ur Culture Indicated? NO. A (NO) Urine Test Negative (Negative)
[2018-10-19 11:54] LABS: Basophils # 0.1 K/mcL (0.0-0.2); Basophils % 0.5 %; Eosinophils % 0.1 %; Hematocrit 33.1 % (35.3-44.9); Hemoglobin 10.8 g/dL (11.5-15.4); Immature Granulocytes % 1.5 % (0-4); Lymphocytes # 2.1 K/mcL (0.6-4.6); Lymphocytes % 22.7 %; Mean Corpuscular HGB Conc 32.6 g/dL (31.6-35.5); Mean Corpuscular Hemoglobin 29.3 pg (28.0-33.3); Mean Corpuscular Volume 89.9 fL (83.0-100.0); Mean Platelet Volume 11.2 fL (9.4-12.4); Monocytes # 0.8 K/mcL (0.0-1.3); Monocytes % 8.3 %; Platelet Count 300 K/mcL (140-400); Red Blood Count 3.68 M/mcL (3.82-4.97); Red Cell Distribution Width 14.4 % (11.5-14.5); Segmented Neutrophils % 66.9 %
[2018-10-19 11:55] LABS: Neutrophils # 6.2 K/mcL (1.6-8.9); Platelet Estimate Normal (Normal); Reactive Lymphocytes Present (Not Present)
[2018-10-19] MEDS ORDERED: Dicyclomine 20 MG/2 ML AMPUL IM STA (12:09)
[2018-10-19] MEDS ORDERED: *HR* FentaNYL (PF) 100 MCG/2 ML VIAL IVP ONE (12:09)
[2018-10-19] MEDS ORDERED: methylPREDNISolone 125 MG/2 ML VIAL IVP ONE (12:10)
[2018-10-19 12:14] LABS: Alanine Aminotransferase 13 Units/L (7-52); Albumin 3.9 g/dL (3.5-5.7); Alkaline Phosphatase 64 Units/L (34-104); Aspartate Amino Transferase 13 Units/L (13-39); BUN/Creatinine Ratio 13 (6-26); Bilirubin,Indirect 0.3 mg/dL (0.0-1.2); Bilirubin,Total 0.3 mg/dL (0.3-1.0); Blood Urea Nitrogen 14 mg/dL (6-20); Calcium 9.5 mg/dL (8.6-10.3); Carbon Dioxide 25 mEq/L (23-29); Chloride 105 mEq/L (98-107); Glucose 96 mg/dL (70-105); Lipase 183 Units/L (11-82); Osmolality,Calculated 286 (280-300); Potassium 3.1 mEq/L (3.5-5.1); Sodium 138 mEq/L (136-145); Total Protein 7.9 g/dL (6.4-8.9); eGFR For Non-African Americans > 60 (> 60)
[2018-10-19] MEDS ORDERED: Isovue-370 500 ML BOTTLE IVP ONE (12:17)
[2018-10-19 13:02] LABS: Bilirubin,Urine Negative (Negative); Blood,Urine Negative (Negative); Clarity,Urine Clear (Clear); Color,Urine Yellow (Yellow); Glucose,Urine (UA) Normal (Normal); Ketones,Urine 15 mg/dL (Negative); Leukocyte Esterase,Urine Trace (Negative); Nitrite,Urine Negative (Negative); PH,Urine 7.5 pH Units (5.0-8.0); Protein,Urine Trace mg/dL (Neg-Trace); Specific Gravity,Urine 1.023 (1.010-1.025); Urobilinogen,Urine Normal (Normal)
[2018-10-19 13:04] LABS: Bacteria,Urine None Seen per hpf (None-Few); Hyaline Casts,Urine None Seen per lpf (None-Few); RBC,Urine 0-3 per hpf (0-3); Squamous Epithelial Cell,Urine Many per lpf (None-Few); WBC,Urine 0-3 per hpf (0-3)
--- NOTE | 2018-10-19 13:04 | Emergency Department Note ---
Disposition Clinical Impression: Colitis Vomiting Qualifiers: Vomiting type: unspecified Vomiting Intractability: intractable Nausea presence: with nausea Qualified Code(s): R11.2 - Nausea with vomiting, unspecified Disposition: Admitted As Inpatient Condition: Fair Time of Disposition: 14:53 General Adult HPI - General Chief complaint: ED Abdominal Pain Stated complaint: abd pain/NVD/Fever Time Seen by Provider: 10/19/18 11:24 Source: patient Mode of arrival: ambulatory Limitations: no limitations Nursing Notes Reviewed: Yes Vital Signs Reviewed: Yes - History of Present Illness Pain Scale: 10 - Related Data Home Medications Medication Instructions Recorded Confirmed Albuterol Sulfate [Proair Hfa] 2 puff IH Q4H PRN 02/26/16 12/10/17 Pantoprazole Sodium [Protonix] 40 mg PO BID 02/26/16 12/10/17 raNITIdine HCl [Zantac] 150 mg PO BID 02/26/16 12/10/17 Montelukast [Singulair] 10 mg PO DAILY 06/22/17 12/10/17 BuPROPion XL (24 HR) [Wellbutrin 150 mg PO DAILY 12/10/17 12/10/17 Xl] FLUoxetine HCl [Fluoxetine HCl] 80 mg PO DAILY 12/10/17 12/10/17 Levothyroxine Sodium 175 mcg PO QAM 12/10/17 12/10/17 Previous Rx's Medication Instructions Recorded traZODone [TraZODone] 50 mg PO HS PRN #30 tablet 06/24/17 Cyclobenzaprine [Flexeril] 10 mg PO TID #15 tablet 01/15/18 Diclofenac Sodium [Voltaren] 50 mg PO BID #30 tablet. 01/15/18 PredniSONE [Deltasone] 20 mg PO DAILY #12 tablet 01/15/18 Naproxen [Naprosyn] 500 mg PO BID PRN #20 tablet 02/01/18 Hydrocortisone 2.5% CREAM [Cortaid] 1 appl TP QID 7 Days #1 tube 04/13/18 Polymyxn-B/Trimeth Opth Drops 1 drop RIGHT EYE QID #1 bottle 08/05/18 [Polytrim Opth Drops] Guaifenesin [Mucinex] 1,200 mg PO BID #20 tab.er.12h 08/30/18 Loratadine/Pseudophed (12 HR) 1 each PO BID #14 tab.er.12h 08/30/18 [Claritin D (12HR)] Ondansetron ODT [Zofran ODT] 4 mg SL Q6HR #12 tab.rapdis 10/15/18 PredniSONE [Deltasone] 40 mg PO DAILY #10 tablet 10/15/18 Levofloxacin [Levaquin] 750 mg PO DAILY #7 tablet 10/17/18 Promethazine [Phenergan] 12.5 mg RC Q6HR PRN #12 supp.rect 10/17/18 metroNIDAZOLE [Metronidazole] 500 mg PO TID #21 tablet 10/17/18 Allergies Allergy/AdvReac Type Severity Reaction Status Date / Time shellfish derived Allergy Hives Verified 10/17/18 02:31 Past Medical History - Past Medical History Medical history: Reports: asthma, other Surgical history: Reports: , orthopedic, other, other Psychiatric history: Reports: anxiety, bipolar, depression, other DEVELOPMENT ASSISTANT history: Reports: no DEVELOPMENT ASSISTANT history, endometriosis, polycystic ovary syndrome - Social History Smoking Status: Former smoker Smokeless Tobacco Status: No Alcohol use: Reports: rarely Drug use: Reports: none Physical Exam - General Limitations: no limitations General appearance: alert, in no apparent distress Course Vital Signs Temperature 98.0 F 10/19/18 11:13 Pulse Rate 79 10/19/18 11:13 Respiratory Rate 18 10/19/18 11:13 Blood Pressure 133/93 10/19/18 11:13 O2 Sat by Pulse Oximetry 98 10/19/18 11:13 Temperature 98.3 F 10/19/18 14:49 Pulse Rate 73 10/19/18 15:29 Respiratory Rate 18 10/19/18 15:29 Blood Pressure 119/70 10/19/18 15:29 O2 Sat by Pulse Oximetry 100 10/19/18 15:29 Oxygen Delivery Oxygen Delivery Room Air Medical Decision Making - Lab Data Result diagrams: 10/19/18 11:36 10/19/18 11:36 Lab Results 10/19/18 10/19/18 10/19/18 Range/Units 11:36 11:36 11:36 WBC 9.2 (4.3-11.1) K/mcL RBC 3.68 L (3.82-4.97) M/mcL Hgb 10.8 L (11.5-15.4) g/dL Hct 33.1 L (35.3-44.9) % MCV 89.9 (83.0-100.0) fL MCH 29.3 (28.0-33.3) pg MCHC 32.6 (31.6-35.5) g/dL RDW 14.4 (11.5-14.5) % Plt Count 300 (140-400) K/mcL MPV 11.2 (9.4-12.4) fL Immature Gran % 1.5 (0-4) % Seg Neutrophils % 66.9 % Lymphocytes % 22.7 % Monocytes % 8.3 % Eosinophils % 0.1 % Basophils % 0.5 % Neutrophils # 6.2 (1.6-8.9) K/mcL Lymphocytes # 2.1 (0.6-4.6) K/mcL Monocytes # 0.8 (0.0-1.3) K/mcL Eosinophils # 0.0 (0.0-0.6) K/mcL Basophils # 0.1 (0.0-0.2) K/mcL Reactive Lymphocytes Present A (Not Present) Platelet Estimate Normal (Normal) Sodium 138 (136-145) mEq/L Potassium 3.1 L (3.5-5.1) mEq/L Chloride 105 (98-107) mEq/L Carbon Dioxide 25 (23-29) mEq/L BUN 14 (6-20) mg/dL Creatinine 1.08 (0.60-1.20) mg/dL Est GFR ( Amer) > 60 (> 60) Est GFR (Non-Af Amer) > 60 (> 60) BUN/Creatinine Ratio 13 (6-26) Glucose 96 (70-105) mg/dL Calculated Osmolality 286 (280-300) Lactic Acid 0.9 (0.5-2.2) mmol/L Calcium 9.5 (8.6-10.3) mg/dL Total Bilirubin 0.3 (0.3-1.0) mg/dL Direct Bilirubin 0.0 (0.0-0.2) mg/dL Indirect Bilirubin 0.3 (0.0-1.2) mg/dL AST 13 (13-39) Units/L ALT 13 (7-52) Units/L Alkaline Phosphatase 64 (34-104) Units/L Serum Total Protein 7.9 (6.4-8.9) g/dL Albumin 3.9 (3.5-5.7) g/dL Globulin 4.0 H (2.4-3.5) g/dL Albumin/Globulin Ratio 1.0 L (1.1-2.2) Lipase 183 H (11-82) Units/L Urine Color (Yellow) Urine Clarity (Clear) Urine pH (5.0-8.0) pH Units Ur Specific [place] (1.010-1.025) Urine Protein (Neg-Trace) mg/dL Urine Glucose (UA) (Normal) mg/dL Urine Ketones (Negative) mg/dL Urine Blood (Negative) Urine Nitrite (Negative) Urine Bilirubin (Negative) Urine Urobilinogen (Normal) mg/dL Ur Leukocyte Esterase (Negative) Urine Microscopic RBC (0-3) per hpf Urine Microscopic WBC (0-3) per hpf Ur Squamous Epith Cells (None-Few) per lpf Urine Bacteria (None-Few) per hpf Hyaline Casts (None-Few) per lpf Ur Culture Indicated? (NO) Urine Test (Negative) Ur Drug Screen Interp 10/19/18 10/19/18 10/19/18 Range/Units 12:40 12:40 14:49 WBC (4.3-11.1) K/mcL RBC (3.82-4.97) M/mcL Hgb (11.5-15.4) g/dL Hct (35.3-44.9) % MCV (83.0-100.0) fL MCH (28.0-33.3) pg MCHC (31.6-35.5) g/dL RDW (11.5-14.5) % Plt Count (140-400) K/mcL MPV (9.4-12.4) fL Immature Gran % (0-4) % Seg Neutrophils % % Lymphocytes % % Monocytes % % Eosinophils % % Basophils % % Neutrophils # (1.6-8.9) K/mcL Lymphocytes # (0.6-4.6) K/mcL Monocytes # (0.0-1.3) K/mcL Eosinophils # (0.0-0.6) K/mcL Basophils # (0.0-0.2) K/mcL Reactive Lymphocytes (Not Present) Platelet Estimate (Normal) Sodium (136-145) mEq/L Potassium (3.5-5.1) mEq/L Chloride (98-107) mEq/L Carbon Dioxide (23-29) mEq/L BUN (6-20) mg/dL Creatinine (0.60-1.20) mg/dL Est GFR ( Amer) (> 60) Est GFR (Non-Af Amer) (> 60) BUN/Creatinine Ratio (6-26) Glucose (70-105) mg/dL Calculated Osmolality (280-300) Lactic Acid (0.5-2.2) mmol/L Calcium (8.6-10.3) mg/dL Total Bilirubin (0.3-1.0) mg/dL Direct Bilirubin (0.0-0.2) mg/dL Indirect Bilirubin (0.0-1.2) mg/dL AST (13-39) Units/L ALT (7-52) Units/L Alkaline Phosphatase (34-104) Units/L Serum Total Protein (6.4-8.9) g/dL Albumin (3.5-5.7) g/dL Globulin (2.4-3.5) g/dL Albumin/Globulin Ratio (1.1-2.2) Lipase (11-82) Units/L Urine Color Yellow (Yellow) Urine Clarity Clear (Clear) Urine pH 7.5 (5.0-8.0) pH Units Ur Specific [place] 1.023 (1.010-1.025) Urine Protein Trace (Neg-Trace) mg/dL Urine Glucose (UA) Normal (Normal) mg/dL Urine Ketones 15 H (Negative) mg/dL Urine Blood Negative (Negative) Urine Nitrite Negative (Negative) Urine Bilirubin Negative (Negative) Urine Urobilinogen Normal (Normal) mg/dL Ur Leukocyte Esterase Trace H (Negative) Urine Microscopic RBC 0-3 (0-3) per hpf Urine Microscopic WBC 0-3 (0-3) per hpf Ur Squamous Epith Cells Many H (None-Few) per lpf Urine Bacteria None Seen (None-Few) per hpf Hyaline Casts None Seen (None-Few) per lpf Ur Culture Indicated? NO. A (NO) Urine Test Negative (Negative) Ur Drug Screen Interp See Below Attestation Statement - Attestation Attestation: I examined this patient and my medical decision-making was reviewed with the Resident Physician. I agree with the documented findings, disposition and treatment plan as described except to the extent set forth below. Patient presents to emergency department with a chief complaint of abdominal pain. Right sided. Onset about a week ago. This is her fourth visit to the ED. States the pain was excruciating this morning. Right sided. Vomiting. She has been seen here and diagnosed with colitis of the ascending and transverse colon. She has been taking Levaquin and Flagyl. On examination she has right-sided abdominal tenderness. Plan. Basic labs pain control and reevaluate. Patient with intractable pain and vomiting. CT scan is improved. No perforation or abscess. Admitted to medicine. Gallbladder Ultrasound 10/19/18 11:29 IMPRESSION: Unremarkable right upper quadrant ultrasound. D/ / 10/19/2018 13:44:15 Edward Garcia MD / franco Interpreting Provider: Edward Garcia MD Abdomen/Pelvis CT 10/19/18 12:17 IMPRESSION: Findings of ascending and proximal transverse colitis have mildly improved since the prior examination. No new, acute inflammatory process in the abdomen or pelvis. D/ / 10/19/2018 14:04:11 Raisa Painting MD / annmarie Interpreting Provider: Raisa Painting MD
[2018-10-19] MEDS ORDERED: Potassium Chloride 40 MEQ, Lidocaine 1% 2 ML in D5% in Water 500 ML IVPB ONE (14:09)
--- NOTE | 2018-10-19 15:16 | Event Note ---
Date of Encounter: 10/19/18 Time of Encounter: 15:10 Patient was seen and examined. I agree with the H&P as written by the resident physician. 28 yo female with asthma history as well as multiple psych disorders who has been dealing with GI sx (nausea/vomiting, inability to keep PO, diarrhea) for about 5-6 days. Has had a temp as high as 106. Came through the ED a couple of times last week and the second time she was discharged on Flagyl/Levaquin/prednisone. CT showed finding consistent with infectious colitis. Took only a couple of days worth of meds due to inability to keep PO and ended up coming back to day. Lab mostly remarkable for K of 3.1. Leukocytosis resolved today compared to a few days ago. A CT abd/pelvis again sh owed ascending and transverse colitis but that is improved compared to previous CT from 4 days ago. Vitals stable in the ED. GEN: NAD CVS: RRR. S1, S2, no m/r/g RESP: CTAB ABD: soft, obese, Tender but no rebound in right side of abdomen as well as epigastric area EXT: no edema, 2+ DP, no rashes Neuro: Non focal Admit to gen/med IV fluid Antiemetics IV cipro/flagyl Send stools for GI panel No need for steroids clear liquid diet and advance as tolerated Replace potassium SCDs
[2018-10-19 16:06] LABS: Amphetamine Screen,Urine Negative ng/mL (Cutoff=1000); Barbiturate Screen,Urine Negative ng/mL (Cutoff=200)
[2018-10-19 16:08] LABS: Benzodiazepines Screen,Urine Positive ng/mL (Cutoff=300); Cannabinoid Screen,Urine Negative ng/mL (Cutoff = 50); Cocaine Screen,Urine Negative ng/mL (Cutoff= 300); Opiate Screen,Urine Negative ng/mL (Cutoff=300); Phencyclidine Screen,Urine Negative ng/mL (Cutoff=25)
--- NOTE | 2018-10-19 16:16 | Internal Med History&Physical ---
Date of Encounter: 10/19/18 Time of Encounter: 16:15 Internal Medicine - H&P: HPI Admitted From: Emergency Dept Plans for Post Hospital Care: Home History of present illness: Ms. Sauceda is a 28 year old female with past medical history including asthma, depression, anxiety, bipolar disorder, presenting with chief complaint of nausea, vomiting, diarrhea for one week. Patient has had multiple visits to the ER for these symptoms. She had CT abdomen and pelvis that showed acute colitis. She was discharged home on Flagyl, Levaquin, prednisone however she has been unable to keep some other dosages down secondary to vomiting. She notes no im provement in the nausea, vomiting, diarrhea which is nonbloody, nonbilious. Diarrhea is non-bloody. She has had multiple episodes a day. She also complains of intermittent episodes of epigastric abdominal pain that is sharp and stabbing. She states she had a oral temperature a few days ago of 105 degrees Fahrenheit. Patient is afebrile and vitals are stable. In the ER, she had repeat CT that showed infectious colitis of the ascending and transverse colon that is mildly improved from prior study. She also had a gallbladder ultrasound that was unremarkable. In the ER, she received IV fluids. She also received a migraine cocktail with Reglan, Solu-Medrol, Benadryl. Patient also received Bentyl and fentanyl for her abdominal pain. Patient was also noted to have hypokalemia in the started on IV potassium. She has been admitted for further management of the colitis and failed outpatient treatment. Patient does note that she was diagnosed with irritable bowel syndrome and has had a colonoscopy a few years ago that was unremarkable. She denies history of surgery on her abdomen besides a prior section and denies family history of Crohn's or Ulcerative colitis. Past Med Surg Social Fam HX - Past Medical History Attestation: Yes The following information was validated with the patient. Source: patient, old records reviewed Medical history: asthma, other Additional medical history: lupus Psychiatric history: anxiety, bipolar, depression, other - Past Surgical History Surgical History: , orthopedic, other, other Additional surgical history: L elbow - Social History Smoking Status: Former smoker Smokeless Tobacco Status: No Alcohol use: rarely Drug use: none - Family History Mother Living Status: Still Living Hx Family Cardiac Disorders: No Hx Family Respiratory Disorders: No Hx Family Cancer: No Hx Family GI Disorders: No Hx Family Genitourinary Disorders: No Hx Family Endocrine Disorder: No Hx Family Musculoskeletal Disorders: No Hx Family Neuromuscular Disorders: No Hx Family Neurologic Disorders: No Hx Family HEENT Disorders: No Hx Family Autoimmune Disorders: No Hx Family Reproductive Disorders: No Hx Family Psychosocial Disorders: Yes (A/D) Hx Family Medical Disorders: No Father Living Status: Still Living Hx Family Cardiac Disorders: Yes ([place]) Hx Family Respiratory Disorders: Yes (COPD) Hx Family Cancer: No Hx Family GI Disorders: No Hx Family Genitourinary Disorders: No Hx Family Endocrine Disorder: No Hx Family Musculoskeletal Disorders: No Hx Family Neuromuscular Disorders: No Hx Family Neurologic Disorders: No Hx Family HEENT Disorders: No Hx Family Autoimmune Disorders: No Hx Family Reproductive Disorders: No Hx Family Psychosocial Disorders: No Hx Family Medical Disorders: No Internal Medicine - H&P: Meds Albuterol Sulfate [Proair Hfa] 2 puff IH Q4H PRN 02/26/16 [History] Pantoprazole Sodium [Protonix] 40 mg PO BID 02/26/16 [History] raNITIdine HCl [Zantac] 150 mg PO BID 02/26/16 [History] Montelukast [Singulair] 10 mg PO DAILY 06/22/17 [History] traZODone [TraZODone] 50 mg PO HS PRN #30 tablet 06/24/17 [Rx] BuPROPion XL (24 HR) [Wellbutrin Xl] 150 mg PO DAILY 12/10/17 [History] FLUoxetine HCl [Fluoxetine HCl] 80 mg PO DAILY 12/10/17 [History] Levothyroxine Sodium 175 mcg PO QAM 12/10/17 [History] Cyclobenzaprine [Flexeril] 10 mg PO TID #15 tablet 01/15/18 [Rx] Diclofenac Sodium [Voltaren] 50 mg PO BID #30 tablet.dr 01/15/18 [Rx] PredniSONE [Deltasone] 20 mg PO DAILY #12 tablet 01/15/18 [Rx] Naproxen [Naprosyn] 500 mg PO BID PRN #20 tablet 02/01/18 [Rx] Hydrocortisone 2.5% CREAM [Cortaid] 1 appl TP QID 7 Days #1 tube 04/13/18 [Rx] Polymyxn-B/Trimeth Opth Drops [Polytrim Opth Drops] 1 drop RIGHT EYE QID #1 bottle 08/05/18 [Rx] Guaifenesin [Mucinex] 1,200 mg PO BID #20 tab.er.12h 08/30/18 [Rx] Loratadine/Pseudophed (12 HR) [Claritin D (12HR)] 1 each PO BID #14 tab.er.12h 08/30/18 [Rx] Ondansetron ODT [Zofran ODT] 4 mg SL Q6HR #12 tab.rapdis 10/15/18 [Rx] PredniSONE [Deltasone] 40 mg PO DAILY #10 tablet 10/15/18 [Rx] Levofloxacin [Levaquin] 750 mg PO DAILY #7 tablet 10/17/18 [Rx] Promethazine [Phenergan] 12.5 mg RC Q6HR PRN #12 supp.rect 10/17/18 [Rx] metroNIDAZOLE [Metronidazole] 500 mg PO TID #21 tablet 10/17/18 [Rx] Allergy/AdvReac Type Severity Reaction Status Date / Time shellfish derived Allergy Hives Verified 10/17/18 02:31 All Systems PM: A 10-system review of systems was performed and is negative for pertinent findings except as documented above in the HPI. - Constitutional Constitutional: as per HPI, fever(s) - EENT Eyes: no change in vision Nose, mouth and throat: no dysphagia, no nasal congestion - Cardiovascular Cardiovascular ROS IM: no chest pain, no edema - Respiratory Respiratory: no cough, no dyspnea - Gastrointestinal Gastrointestinal: abdominal pain, loose stools, nausea, vomiting, no hematochezia, no melena - Genitourinary Genitourinary: no dysuria, no urinary frequency, no vaginal discharge Menstruation: menses 8 or > days - Musculoskeletal Musculoskeletal ROS IM: no muscle cramps, no muscle weakness - Integumentary Integumentary IM: no rash - Neurological Neurological ROS: no confusion, no dizziness - Allergic/Immunologic Allergic/Immunologic: no seasonal rhinorrhea - Constitutional Vitals: Temp Pulse Resp BP Pulse Ox 98.3 F 73 18 119/70 100 10/19/18 14:49 10/19/18 15:29 10/19/18 15:29 10/19/18 15:29 10/19/18 15:29 General appearance: Present: cooperative, A&O X 3, no acute distress, obese Exam: see below - Head Head exam: Present: atraumatic, normocephalic - Eye Eye exam: Present: EOMI. Absent: conjunctival injection - ENT ENT exam: Present: mucous membranes moist, normal exam - Neck Neck exam general surgery: Present: full ROM. Absent: tenderness - Respiratory Respiratory exam: Present: CTAB. Absent: accessory muscle use, wheezes - Cardiovascular Cardiovascular exam: Present: RRR, +S1, +S2 - GI/Abdominal GI/Abdominal exam: Present: soft, tenderness (mild epigastric tenderness). Absent: distended, guarding, rebound, rigid - Extremities Exam Extremities exam: Present: normal capillary refill, warm. Absent: calf tenderness - Neurological Exam Neurological exam: Present: alert, oriented X3 - Psychiatric Psychiatric exam: Present: normal affect, normal mood - Skin Skin exam: Present: normal color, warm. Absent: pallor Internal Med - H&P Results - Labs CBC & Chem 7: 10/19/18 11:36 10/19/18 11:36 Labs: Short CBC 10/19/18 Range/Units 11:36 WBC 9.2 (4.3-11.1) K/mcL Hgb 10.8 L (11.5-15.4) g/dL Hct 33.1 L (35.3-44.9) % Plt Count 300 (140-400) K/mcL Neutrophils # 6.2 (1.6-8.9) K/mcL BMP 10/19/18 11:36 Sodium 138 Potassium 3.1 L Chloride 105 Carbon Dioxide 25 BUN 14 Creatinine 1.08 Glucose 96 Calcium 9.5 Liver Function 10/19/18 Range/Units 11:36 Total Bilirubin 0.3 (0.3-1.0) mg/dL Direct Bilirubin 0.0 (0.0-0.2) mg/dL AST 13 (13-39) Units/L ALT 13 (7-52) Units/L Alkaline Phosphatase 64 (34-104) Units/L Albumin 3.9 (3.5-5.7) g/dL Urine 10/19/18 Range/Units 12:40 Urine Color Yellow (Yellow) Urine Clarity Clear (Clear) Urine pH 7.5 (5.0-8.0) pH Units Ur Specific [place] 1.023 (1.010-1.025) Urine Protein Trace (Neg-Trace) mg/dL Urine Glucose (UA) Normal (Normal) mg/dL - Impressions ITS Impressions Gallbladder Ultrasound 10/19/18 11:29 IMPRESSION: Unremarkable right upper quadrant ultrasound. D/ / 10/19/2018 13:44:15 Edward Garcia MD / franco Interpreting Provider: Edward Garcia MD Abdomen/Pelvis CT 10/19/18 12:17 IMPRESSION: Findings of ascending and proximal transverse colitis have mildly improved since the prior examination. No new, acute inflammatory process in the abdomen or pelvis. D/ / 10/19/2018 14:04:11 Raisa Painting MD / annmarie Interpreting Provider: Raisa Painting MD - Assessment and plan (1) Colitis Current Visit: Yes Status: Acute Assessment and plan: with nausea, vomiting, diarrhea CT A/P from today with ascending and proximal transverse colitis, mildly improved Started on IV Cipro, flagyl IV protonix for GI PPI as patient is NPO with ice chips Maintenance IV fluids Zofran for nausea IV toradol or SL oxycodone for pain. Stool panel sent Anticipate disposition to home on dc (2) Hypokalemia Current Visit: Yes Status: Acute Assessment and plan: Potassium 3.1 Likely secondary to vomiting and diarrhea Replace with IV potassium Repeat potassium and magnesium tomorrow Continuous cardiac monitoring (3) Hypothyroidism Current Visit: No Status: Chronic Assessment and plan: Awaiting med rec. Will continue home meds. Qualifiers: Hypothyroidism type: unspecified Qualified Code(s): E03.9 - Hypothyroidism, unspecified (4) Asthma Current Visit: No Status: Chronic Assessment and plan: Awaiting med rec. Will continue home meds Qualifiers: Asthma severity: mild Asthma persistence: intermittent Asthma complication type: uncomplicated Qualified Code(s): J45.20 - Mild intermittent asthma, uncomplicated (5) MDD (major depressive disorder), recurrent severe, without psychosis Current Visit: No Status: Chronic Assessment and plan: Awaiting med rec. Will continue home medications. (6) DVT prophylaxis Current Visit: Yes Status: Acute Assessment and plan: GI PPX with IV protonix SQ heparin - Time Spent With Patient Total time spent is greater than 50% in coordination of care (as documented) at patient's floor/unit and/or counseling patient:
[2018-10-19] MEDS ORDERED: Naloxone 0.4 MG/ML INJ IVP PRN (16:21)
[2018-10-19] MEDS ORDERED: OXYCODONE Oral CONC 10 MG/0.5 ML ORAL.SYG SL PRN (16:21)
[2018-10-19] MEDS: Ondansetron ODT 4 MG TAB.RAPDIS SL PRN (18:27)
[2018-10-19] MEDS: Ketorolac 15 MG/ML VIAL IVP PRN (18:27)
[2018-10-19] MEDS: Famotidine 20 MG/2 ML VIAL IVP SCH (18:27)
[2018-10-19] MEDS: 0.9 % Sodium Chloride 1,000 ML IVC SCH (18:33)
[2018-10-19] MEDS: *HR* Heparin 5,000 UNIT/ML VIAL SQ SCH (21:12)
[2018-10-19] MEDS ORDERED: OXYCODONE Oral CONC 10 MG/0.5 ML ORAL.SYG SL ONE (21:23)
[2018-10-20] MEDS: MetroNIDAZOLE 500 MG/100 ML 500 MG/100 ML BAG IVPB SCH ×3 (00:29→16:04)
[2018-10-20] MEDS ORDERED: OXYCODONE Oral CONC 10 MG/0.5 ML ORAL.SYG SL PRN (01:24)
[2018-10-20] MEDS: Ketorolac 15 MG/ML VIAL IVP PRN ×3 (05:23→22:23)
[2018-10-20] MEDS: *HR* Heparin 5,000 UNIT/ML VIAL SQ SCH ×3 (05:27→22:24)
[2018-10-20] MEDS: Famotidine 20 MG/2 ML VIAL IVP SCH (05:31)
[2018-10-20] MEDS: 0.9 % Sodium Chloride 1,000 ML IVC SCH (05:34)
[2018-10-20 06:58] LABS: Basophils % 0.6 %; Eosinophils % 0.6 %; Hematocrit 29.2 % (35.3-44.9); Immature Granulocytes % 2.1 % (0-4); Lymphocytes # 3.4 K/mcL (0.6-4.6); Lymphocytes % 47.5 %; Mean Corpuscular HGB Conc 31.5 g/dL (31.6-35.5); Mean Corpuscular Hemoglobin 29.2 pg (28.0-33.3); Mean Corpuscular Volume 92.7 fL (83.0-100.0); Mean Platelet Volume 10.9 fL (9.4-12.4); Monocytes # 0.5 K/mcL (0.0-1.3); Monocytes % 6.5 %; Neutrophils # 3.1 K/mcL (1.6-8.9); Platelet Count 222 K/mcL (140-400); Red Blood Count 3.15 M/mcL (3.82-4.97); Red Cell Distribution Width 14.5 % (11.5-14.5); Segmented Neutrophils % 42.7 %
[2018-10-20 07:02] LABS: Hemoglobin 9.2 g/dL (11.5-15.4)
[2018-10-20 07:20] LABS: BUN/Creatinine Ratio 13 (6-26); Blood Urea Nitrogen 13 mg/dL (6-20); Calcium 8.5 mg/dL (8.6-10.3); Carbon Dioxide 23 mEq/L (23-29); Chloride 108 mEq/L (98-107); Glucose 90 mg/dL (70-105); Magnesium 2.1 mg/dL (1.6-2.6); Osmolality,Calculated 286 (280-300); Phosphorous 3.8 mg/dL (2.7-4.5); Potassium 3.2 mEq/L (3.5-5.1); Sodium 138 mEq/L (136-145); eGFR For Non-African Americans > 60 (> 60)
[2018-10-20 07:31] LABS: Platelet Estimate Normal (Normal)
[2018-10-20] MEDS ORDERED: Acetaminophen 325 MG TABLET PO ONE (10:06)
[2018-10-20] MEDS: Ondansetron ODT 4 MG TAB.RAPDIS SL PRN ×2 (11:09→22:23)
--- NOTE | 2018-10-20 11:21 | Event Note ---
Date of Encounter: 10/20/18 Time of Encounter: 11:17 Patient was seen and examined. I agree with the progress note as written by the resident physician. No loose stools while here. Abdominal pain persists subjectively and on exam. Nausea is well controlled. Has not had PO while here so far. Admitted yesterday with GI sx (nausea/vomiting, inability to keep PO, diarrhea) for about 5-6 days. Has had a temp as high as 105. Came through the ED a couple of times last week and the second time she was discharged on Flagyl/Levaquin/prednisone. CT showed finding consistent with infectious colitis. Took only a couple of days worth of meds due to inability to keep PO and ended up coming back to day. Lab mostly remarkable for K of 3.1. Leukocytosis resolved today compared to a few days ago. A CT abd/pelvis again showed ascending and transverse colitis but that is improved compared to previous CT from 4 days ago. Vitals stable in the ED. GEN: NAD CVS: RRR. S1, S2, no m/r/g RESP: CTAB ABD: soft, obese, Tender but no rebound on right side of abdomen as well as epigastric area EXT: no edema, 2+ DP, no rashes Neuro: Non focal continue supportive care Send stools for analysis if she gives a loose sample c/w IV fluids but add K to them today Will give both IV K and oral K supplement today as well Check labs in am c/w antiemetics IV cipro/flagyl Start clear liquid diet and advance as tolerated SCDs
[2018-10-20] MEDS ORDERED: Potassium Chloride Elixir 20 MEQ/15 ML UDC PO ONE (13:45)
[2018-10-20] MEDS: 0.9 % Sodium Chloride w KCl 40 MEQ/1,000 ML MLS IVC SCH (16:08)
--- NOTE | 2018-10-20 17:32 | Internal Med Progress Note ---
Hospitalist Progress Note - Encounter Date of Encounter: 10/20/18 Time of Encounter: 15:30 - Subjective Interval History: Patient states her nausea is resolved. Tolerating clear diet today. Abdominal pain is improving. Had one loose bowel movement but no diarrhea. Denies any new complaints. Denies chills, chest pain, shortness of breath, headache. Vitals stable. - Exam Vitals: Temp Pulse Resp BP Pulse Ox 98.2 F 66 16 94/62 93 10/20/18 15:04 10/20/18 15:04 10/20/18 15:04 10/20/18 15:04 10/20/18 15:04 Exam: Gen: alert and no acute distress Head: normocephalic, atraumatic Eyes: EOMI intact, normal conjunctiva ENT: oral mucosa moist Neck: trachea midline Cardiovascular: RRR, normal S1, S2, no murmur Respiratory: lungs clear to auscultation bilaterally, no wheezing Abdomen: soft, nontender, no distension, no rebound, no guarding Neuro: AAOX3 Psych: normal mood and affect Skin: dry and warm - Assessment and Plan (1) Colitis Current Visit: Yes Status: Acute Assessment and Plan: Improving. Tolerating clears. Advance diet as tolerated CT A/P from today with ascending and proximal transverse colitis, mildly improved Continue IV Cipro, flagyl, day 2 IV fluids normal saline with K+ Continue Zofran for nausea Continue IV toradol or SL oxycodone as needed for pain. (2) Hypokalemia Current Visit: Yes Status: Acute Assessment and Plan: Potassium 3.2 today Likely secondary to vomiting and diarrhea S/p IV potassium 40mg yesterday PO potassium today and added potassium to IVFs, 100mls/hr Magnesium normal (3) Hypothyroidism Current Visit: No Status: Chronic Assessment and Plan: Continue with home medications (4) Asthma Current Visit: No Status: Chronic Assessment and Plan: Continue home meds (5) MDD (major depressive disorder), recurrent severe, without psychosis Current Visit: No Status: Chronic Assessment and Plan: Continue home meds DVT Prophylaxis: SQ heparin - Time Spent with Patient Total time spent is greater than 50% in coordination of care (as documented) at patient's floor/unit and/or counseling patient: Plan of Care Discussed with: patient Internal Medicine: Result - Labs CBC & Chem 7: 10/20/18 06:44 10/20/18 06:44 Labs: Short CBC 10/20/18 Range/Units 06:44 WBC 7.2 (4.3-11.1) K/mcL Hgb 9.2 L D (11.5-15.4) g/dL Hct 29.2 L (35.3-44.9) % Plt Count 222 (140-400) K/mcL Neutrophils # 3.1 (1.6-8.9) K/mcL BMP 10/20/18 06:44 Sodium 138 Potassium 3.2 L Chloride 108 H Carbon Dioxide 23 BUN 13 Creatinine 1.01 Glucose 90 Calcium 8.5 L Consult Discharge Plan - Plan Referrals: Avery Hernandez MD [Primary Care Provider] - (Your appointment has been requested.) (3) Hypothyroidism Qualifiers: Hypothyroidism type: unspecified Qualified Code(s): E03.9 - Hypothyroidism, unspecified (4) Asthma Qualifiers: Asthma severity: mild Asthma persistence: intermittent Asthma complication type: uncomplicated Qualified Code(s): J45.20 - Mild intermittent asthma, uncomplicated
[2018-10-20] MEDS: Famotidine 20 MG TABLET PO SCH (20:10)
[2018-10-20] MEDS ORDERED: Gabapentin 300 MG CAPSULE PO SCH (21:00)
[2018-10-21] MEDS: MetroNIDAZOLE 500 MG/100 ML 500 MG/100 ML BAG IVPB SCH ×2 (00:25→08:00)
[2018-10-21] MEDS: Ketorolac 15 MG/ML VIAL IVP PRN (05:44)
[2018-10-21] MEDS: *HR* Heparin 5,000 UNIT/ML VIAL SQ SCH ×2 (05:45→13:15)
[2018-10-21] MEDS: 0.9 % Sodium Chloride w KCl 40 MEQ/1,000 ML MLS IVC SCH (05:48)
[2018-10-21 06:19] LABS: Basophils # 0.1 K/mcL (0.0-0.2); Basophils % 0.8 %; Eosinophils # 0.1 K/mcL (0.0-0.6); Eosinophils % 1.5 %; Hematocrit 28.7 % (35.3-44.9); Hemoglobin 8.9 g/dL (11.5-15.4); Lymphocytes # 3.1 K/mcL (0.6-4.6); Lymphocytes % 47.5 %; Mean Corpuscular Hemoglobin 29.1 pg (28.0-33.3); Mean Corpuscular Volume 93.8 fL (83.0-100.0); Mean Platelet Volume 11.6 fL (9.4-12.4); Monocytes # 0.5 K/mcL (0.0-1.3); Monocytes % 8.3 %; Neutrophils # 2.5 K/mcL (1.6-8.9); Platelet Count 238 K/mcL (140-400); Red Blood Count 3.06 M/mcL (3.82-4.97); Red Cell Distribution Width 14.3 % (11.5-14.5); Segmented Neutrophils % 37.9 %
[2018-10-21 06:37] LABS: BUN/Creatinine Ratio 8 (6-26); Blood Urea Nitrogen 8 mg/dL (6-20); Calcium 8.3 mg/dL (8.6-10.3); Carbon Dioxide 25 mEq/L (23-29); Chloride 112 mEq/L (98-107); Glucose 76 mg/dL (70-105); Osmolality,Calculated 287 (280-300); Potassium 3.7 mEq/L (3.5-5.1); Sodium 140 mEq/L (136-145); eGFR For Non-African Americans > 60 (> 60)
[2018-10-21] MEDS: Ondansetron ODT 4 MG TAB.RAPDIS SL PRN (06:53)
[2018-10-21] MEDS: Famotidine 20 MG TABLET PO SCH (08:04)
[2018-10-21] MEDS ORDERED: FLUoxetine 20 MG CAPSULE PO SCH (09:00)
[2018-10-21] MEDS ORDERED: (Brexpiprazole [Rexulti] 2 MG) PO SCH (09:00)
[2018-10-21] MEDS ORDERED: BuPROPion XL (24 HR) 150 MG TABLET PO SCH (09:00)
[2018-10-21 11:03] VITALS: BP 106/65
--- NOTE | 2018-10-21 13:42 | Discharge Summary ---
<Lety Garibay M - Last Filed: 10/21/18 13:40> - NOTES TO OUTPATIENT PROVIDER Notes to Outpatient Provider: GI referral for possible EGD/colonoscopy. Cipro and Flagyl x5 days Date of Encounter: 10/21/18 Time of Encounter: 09:15 - Discharge Diagnosis (1) Colitis Priority: Primary Status: Acute Assessment and Plan: Continue Ciprofloxacin and Flagyl, PO x5 days (2) Hypokalemia Priority: Secondary Status: Resolved Assessment and Plan: Resolved. Secondary to vomiting and diarrhea (3) Hypothyroidism Priority: Secondary Status: Chronic Assessment and Plan: Continue home medications Qualifiers: Hypothyroidism type: unspecified Qualified Code(s): E03.9 - Hypothyroidism, unspecified (4) Asthma Priority: Secondary Status: Chronic Assessment and Plan: Continue home medications Qualifiers: Asthma severity: mild Asthma persistence: intermittent Asthma complication type: uncomplicated Qualified Code(s): J45.20 - Mild intermittent asthma, uncomplicated (5) MDD (major depressive disorder), recurrent severe, without psychosis Priority: Secondary Status: Chronic Assessment and Plan: Continue home medications Hospital course: Ms. Sauceda is a 28 year old female with past medical history including asthma, depression, anxiety, bipolar disorder, hypothyroidism, presenting with chief complaint of nausea, vomiting, diarrhea for one week. Patient had multiple visits to the ER for these symptoms. CT abdomen and pelvis showed acute colitis and she was discharged home on Flagyl, Levaquin, prednisone. She was unable to keep down her medications secondary to nausea and vomiting. She had nonbloody, nonbilious vomiting and nonbloody, not watery diarrhea. She also had a fever of 105 degrees Fahrenheit. Patient presented afebrile and vital stable. In the ER on this admission, she had a repeat CT abdomen and pelvis without contrast that showed infectious colitis of the ascending and transverse colon that was mildly improved. She also had a gallbladder ultrasound that was unremarkable. Patient received IV fluids. She also received IV potassium 40 mg for hypokalemia. Hypokalemia is likely secondary to her vomiting and diarrhea. Patient was admitted for management of her infectious colitis. She was started on IV Cipro and IV Flagyl. Stool culture was ordered but not obtained. IV fluids were transitioned to normal saline with potassium. Magnesium was within normal limits. No other lab abnormalities. Hypokalemia did resolve. Patient's diet was also slowly advance. She is now eating a regular diet. She has not had any vomiting while here. Zofran as needed for nausea and Toradol as needed for pain. She has had 2 loose bowel movements, no diarrhea. Patient has remained afebrile and vital stable. She has no other complaints and states she is feeling much better. Patient will be discharged home on an additional 5 days of antibiotics to complete a 7 day course. She will follow up with her primary care physician and recommended gastroenterology referral for possible colonoscopy and EGD. All questions answered and patient is medically stable for discharge home. l Discharge discussed with: patient, family - Time Spent with Patient Total time spent providing and/or coordinating discharge services: - Discharge Medications Prescriptions: Promethazine [Phenergan] 12.5 mg PO Q6HR #8 tablet Ciprofloxacin [Cipro] 500 mg PO BID 5 Days #10 tablet metroNIDAZOLE [Flagyl] 500 mg PO TID 5 Days #15 tablet Home Medications: Albuterol Sulfate [Proair Hfa] 2 puff IH Q4H PRN 02/26/16 [History] Pantoprazole Sodium [Protonix] 40 mg PO BID 02/26/16 [History] Montelukast [Singulair] 10 mg PO HS 06/22/17 [History] BuPROPion XL (24 HR) [Wellbutrin Xl] 300 mg PO DAILY 12/10/17 [History] Levothyroxine Sodium 175 mcg PO QAM 12/10/17 [History] Ondansetron ODT [Zofran ODT] 4 mg SL Q6HR #12 tab.rapdis 10/15/18 [Rx] PredniSONE [Deltasone] 40 mg PO DAILY #10 tablet 10/15/18 [Rx] Brexpiprazole [Rexulti] 2 mg PO DAILY 10/20/18 [History] Diclofenac Sodium [Voltaren] 75 mg PO DAILY PRN 10/20/18 [History] Doxepin HCl 10 - 20 mg PO HS 10/20/18 [History] Eletriptan HBr [Relpax] 40 mg PO DAILY PRN 10/20/18 [History] FLUoxetine HCl [Prozac] 20 mg PO DAILY 10/20/18 [History] Fremanezumab-Vfrm [Ajovy] 225 mg SQ QMONTH 10/20/18 [History] Gabapentin [Neurontin] 300 mg PO HS 10/20/18 [History] Metformin HCl [Metformin ER Gastric] 500 mg PO HS 10/20/18 [History] Norgestimate-Ethinyl Estradiol [Sprintec 28 Day Tablet] 1 tab PO DAILY 10/20/18 [History] Tizanidine HCl 2 mg PO HS PRN 10/20/18 [History] diazePAM [Valium] 5 mg PO TID PRN 10/20/18 [History] Ciprofloxacin [Cipro] 500 mg PO BID 5 Days #10 tablet 10/21/18 [Rx] Promethazine [Phenergan] 12.5 mg PO Q6HR #8 tablet 10/21/18 [Rx] metroNIDAZOLE [Flagyl] 500 mg PO TID 5 Days #15 tablet 10/21/18 [Rx] Allergies/Adverse Reactions: Allergy/AdvReac Type Severity Reaction Status Date / Time shellfish derived Allergy Hives Verified 10/17/18 02:31 Date of admission: 10/19/18 18:13 Primary care physician: Avery Hernandez MD Discharging clinician: Lety Garibay Anticipated date of discharge: 10/21/18 - Constitutional Vitals: Temp Pulse Resp BP Pulse Ox 98.1 F 72 18 106/65 98 10/21/18 11:01 10/21/18 11:01 10/21/18 11:01 10/21/18 11:01 10/21/18 11:01 General appearance: Present: cooperative, A&O X 3, no acute distress, obese Exam: See below - Head Head exam: Present: atraumatic, normal inspection - Eye Eye exam: Present: EOMI. Absent: conjunctival injection, scleral icterus - ENT ENT exam: Present: mucous membranes moist - Neck Neck exam general surgery: Present: full ROM, supple. Absent: tenderness - Respiratory Respiratory exam: Present: CTAB. Absent: respiratory distress, wheezes - Cardiovascular Cardiovascular exam: Present: RRR, +S1, +S2. Absent: systolic murmur - GI/Abdominal GI/Abdominal exam: Present: normal bowel sounds, soft, no peritoneal signs. Absent: guarding, rebound, rigid, tenderness - Extremities Exam Extremities exam: Present: normal capillary refill. Absent: calf tenderness - Neurological Exam Neurological exam: Present: alert, oriented X3 - Psychiatric Psychiatric exam: Present: normal affect, normal mood - Skin Skin exam: Present: dry, normal color, warm. Absent: pallor - Patient Status Disposition: Home, Self-Care Condition: Good Functional capacity at discharge: independent ambulation Overall status at discharge: patient is progressing back to baseline - Discharge Instructions Instructions: Ciprofloxacin (By mouth), Promethazine (By mouth), Metronidazole (By mouth), Ulcerative Colitis, Veterinary Meat Inspector (GEN) Follow Up With: Avery Hernandez MD [Primary Care Provider] - (Your appointment has been requested.) Additional Instructions: Please complete the 5 day course of your two antibiotics, Cipro and Flagyl. You can take phenergan every 6 hours as needed for nausea. You can take ibuprofen or tylenol as needed for pain. Advance your diet as tolerated. Eat small frequent meals. You can add probiotics to your diet. Drink small frequent sips of water and you can add sugar free gatorade. Follow up with your family doctor and call today or tomorrow morning for an appointment. You may need a gastroenterology referral. - Diet and Activity Activity: increase activity as tolerated Diet: advance to your usual diet <Anthony Steele - Last Filed: 10/21/18 18:49> Date of Encounter: 10/21/18 Hospital course: Ms. Sauceda is a 28 year old female - Time Spent with Patient Total time spent providing and/or coordinating discharge services: Date of admission: 10/19/18 18:13 Primary care physician: Avery Hernandez MD - Constitutional Vitals: Temp Pulse Resp BP Pulse Ox 98.1 F 72 18 106/65 98 10/21/18 11:01 10/21/18 11:01 10/21/18 11:01 10/21/18 11:01 10/21/18 11:01 - Attending Attestation I examined this patient and my medical decision-making was reviewed with the Resident Physician. I agree with the documented findings, disposition and treatment plan as described except to the extent set forth below.
--- NOTE | 2018-10-21 15:20 | Electrocardiograph Report ---
[address] [place], [place] [address] Test Date: 2018-10-21 Pat Name: Jayde Sauceda Department: 113 Room: 3B Gender: F [employer]oc[employer] Designer: : [id number] Requested By: [id number] Order Number: [id number] Reading MD: Gabe Robertson Measurements Intervals [place] Rate: 67 P: 47 WI: 139 QRS: 20 QRSD: 86 T: 14 QT: 416 QTc: 432 Interpretive Statements SINUS RHYTHM Possible septal infarct AU Electronically Signed On 10-21-2018 15:18:52 EST by Gabe Robertson
== END 2018-10-21 14:59 | disposition home or self-care (01) | DRG 392 ==
LOC: EMEROOARM 10:57 → 3BNU 10:57 → SUATTDRO 18:13
PROVIDERS: ADMIT Internal Medicine; ATTEND Student in an Organized Health Care Education/Training Program

== ENCOUNTER 2019-01-19 10:46 | Inpatient (IN) ==
[2019-01-19 11:08] LABS: Bilirubin,Urine Negative (Negative); Blood,Urine Negative (Negative); Clarity,Urine Clear (Clear); Color,Urine Yellow (Yellow); Glucose,Urine (UA) Normal (Normal); Ketones,Urine Negative (Negative); Leukocyte Esterase,Urine Negative (Negative); Nitrite,Urine Negative (Negative); PH,Urine 6.5 pH Units (5.0-8.0); Protein,Urine Negative (Neg-Trace); Specific Gravity,Urine 1.005 (1.010-1.025); Urobilinogen,Urine Normal (Normal)
[2019-01-19 11:27] LABS: Amphetamine Screen,Urine Negative ng/mL (Cutoff=1000); Barbiturate Screen,Urine Negative ng/mL (Cutoff=200); Benzodiazepines Screen,Urine Positive ng/mL (Cutoff=200); Cannabinoid Screen,Urine Negative ng/mL (Cutoff = 50); Cocaine Screen,Urine Negative ng/mL (Cutoff= 300); Opiate Screen,Urine Negative ng/mL (Cutoff=300); Phencyclidine Screen,Urine Negative ng/mL (Cutoff=25)
[2019-01-19 11:39] LABS: Basophils % 0.3 %; Eosinophils # 0.1 K/mcL (0.0-0.6); Eosinophils % 1.4 %; Hematocrit 31.3 % (35.3-44.9); Hemoglobin 10.1 g/dL (11.5-15.4); Immature Granulocytes % 0.6 % (0-4); Lymphocytes % 28.9 %; Mean Corpuscular HGB Conc 32.3 g/dL (31.6-35.5); Mean Corpuscular Hemoglobin 29.3 pg (28.0-33.3); Mean Corpuscular Volume 90.7 fL (83.0-100.0); Monocytes # 0.5 K/mcL (0.0-1.3); Neutrophils # 4.4 K/mcL (1.6-8.9); Platelet Count 173 K/mcL (140-400); Red Blood Count 3.45 M/mcL (3.82-4.97); Red Cell Distribution Width 14.2 % (11.5-14.5); Segmented Neutrophils % 61.8 %
[2019-01-19 11:58] LABS: Acetaminophen < 10 mcg/mL (10-20); BUN/Creatinine Ratio 10 (6-26); Blood Urea Nitrogen 10 mg/dL (6-20); Carbon Dioxide 23 mEq/L (23-29); Chloride 109 mEq/L (98-107); Ethanol < 10 mg/dL (Less than 10); Glucose 87 mg/dL (70-105); Osmolality,Calculated 286 (280-300); Potassium 3.9 mEq/L (3.5-5.1); Salicylate < 2.5 mg/dL (15.0-30.0); Sodium 139 mEq/L (136-145); eGFR For Non-African Americans > 60 (> 60)
--- NOTE | 2019-01-19 13:17 | Emergency Department Note ---
Disposition Clinical Impression: Suicidal ideation Depression Qualifiers: Depression Type: unspecified Qualified Code(s): F32.9 - Major depressive disorder, single episode, unspecified Disposition: Admitted As Inpatient Condition: Fair Time of Disposition: 13:10 Psych HPI - General Chief Complaint: ED Psychiatric Symptoms Stated Complaint: SI Time Seen by Provider: 01/19/19 10:58 Source: patient Mode of arrival: ambulatory Limitations: no limitations Nursing Notes Reviewed: Yes Vital Signs Reviewed: Yes - History of Present Illness HPI Narrative: 28-year-old female presents emergency department for evaluation of depression and wanting to self harm. Patient states she has a history of depression, anxi ety, bipolar disorder. She has had suicidal thoughts in the past but has never attempted to harm herself. Patient does not have a plan to and her life. Patient reports she has self harming tendencies and is currently using a rubber band to prevent from cutting herself. Patient felt that she was more depressed today and wanted to be evaluated in the emergency department. She has multiple resources for psychiatric follow-up. Patient denies attempting to herself today. She did not overdose of medications. She denies alcohol or illicit drug use. - Related Data Home Medications Medication Instructions Recorded Confirmed Albuterol Sulfate [Proair Hfa] 2 puff IH Q4H PRN 02/26/16 01/19/19 Pantoprazole Sodium [Protonix] 40 mg PO BID 02/26/16 01/19/19 BuPROPion XL (24 HR) [Wellbutrin 300 mg PO DAILY 12/10/17 01/19/19 Xl] Levothyroxine Sodium 175 mcg PO QAM 12/10/17 01/19/19 Brexpiprazole [Rexulti] 2 mg PO DAILY 10/20/18 01/19/19 Diclofenac Sodium [Voltaren] 75 mg PO DAILY PRN 10/20/18 01/19/19 Eletriptan HBr [Relpax] 40 mg PO DAILY PRN 10/20/18 01/19/19 FLUoxetine HCl [Prozac] 60 mg PO QAM 10/20/18 01/19/19 Fremanezumab-Vfrm [Ajovy] 225 mg SQ QMONTH 10/20/18 01/19/19 Metformin HCl [Metformin ER 500 mg PO HS 10/20/18 01/19/19 Gastric] Tizanidine HCl 2 mg PO HS PRN 10/20/18 01/19/19 diazePAM [Valium] 5 mg PO TID PRN 10/20/18 01/19/19 Pregabalin [Lyrica] 50 mg PO BID 01/19/19 01/19/19 Ranitidine HCl [Acid Weight Trainer] 150 mg PO BID 01/19/19 01/19/19 l-Norgest/E.estradiol-E.estrad 1 tab PO DAILY 01/19/19 01/19/19 [Levono-E Estrad 0.15-0.03-0.01] Previous Rx's Medication Instructions Recorded Ibuprofen [Motrin] 600 mg PO Q8HR PRN #20 tab 11/24/18 Allergies Allergy/AdvReac Type Severity Reaction Status Date / Time shellfish derived Allergy Hives Verified 10/17/18 02:31 All systems ED: reviewed and negative except as stated. Review of Systems: As Per HPI Past Medical History - Past Medical History Attestation: Yes The following information was validated with the patient. 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 Bowel sounds present Neuro: A&O to person, place, time and situation. No focal deficits noted on exam Psychiatric: cooperative and appropriate mood and affect. - General Limitations: no limitations General appearance: alert, in no apparent distress Course Vital Signs Temperature 98.3 F 01/19/19 10:53 Pulse Rate 88 01/19/19 10:53 Respiratory Rate 16 01/19/19 10:53 Blood Pressure 123/74 01/19/19 10:53 O2 Sat by Pulse Oximetry 98 01/19/19 10:53 Temperature 98.3 F 01/19/19 10:53 Pulse Rate 88 01/19/19 10:53 Respiratory Rate 16 01/19/19 10:53 Blood Pressure 123/74 01/19/19 10:53 O2 Sat by Pulse Oximetry 98 01/19/19 10:53 Oxygen Delivery Oxygen Delivery Room Air Psych - MDM Narrative Medical decision making narrative: Patient was medically cleared and evaluated by behavioral health. Patient initially did not meet criteria for inpatient treatment and she had felt comfortable with returning home however patient states that she did not feel comfortable with returning home and will likely attempts to end her life by medication overdose. I re-counseled that the behavioral health specialist who will now admit her to the behavioral health floor. - Lab Data Result diagrams: 01/19/19 11:26 01/19/19 11:26 Lab Results 01/19/19 01/19/19 01/19/19 Range/Units 10:56 10:56 11:26 WBC 7.0 (4.3-11.1) K/mcL RBC 3.45 L (3.82-4.97) M/mcL Hgb 10.1 L (11.5-15.4) g/dL Hct 31.3 L (35.3-44.9) % MCV 90.7 (83.0-100.0) fL MCH 29.3 (28.0-33.3) pg MCHC 32.3 (31.6-35.5) g/dL RDW 14.2 (11.5-14.5) % Plt Count 173 (140-400) K/mcL MPV 12.0 (9.4-12.4) fL Immature Gran % 0.6 (0-4) % Seg Neutrophils % 61.8 % Lymphocytes % 28.9 % Monocytes % 7.0 % Eosinophils % 1.4 % Basophils % 0.3 % Neutrophils # 4.4 (1.6-8.9) K/mcL Lymphocytes # 2.0 (0.6-4.6) K/mcL Monocytes # 0.5 (0.0-1.3) K/mcL Eosinophils # 0.1 (0.0-0.6) K/mcL Basophils # 0.0 (0.0-0.2) K/mcL Sodium (136-145) mEq/L Potassium (3.5-5.1) mEq/L Chloride (98-107) mEq/L Carbon Dioxide (23-29) mEq/L BUN (6-20) mg/dL Creatinine (0.60-1.20) mg/dL Est GFR ( Amer) (> 60) Est GFR (Non-Af Amer) (> 60) BUN/Creatinine Ratio (6-26) Glucose (70-105) mg/dL Calculated Osmolality (280-300) Calcium (8.6-10.3) mg/dL Urine Color Yellow (Yellow) Urine Clarity Clear (Clear) Urine pH 6.5 (5.0-8.0) pH Units Ur Specific [place] 1.005 L (1.010-1.025) Urine Protein Negative (Neg-Trace) mg/dL Urine Glucose (UA) Normal (Normal) mg/dL Urine Ketones Negative (Negative) mg/dL Urine Blood Negative (Negative) Urine Nitrite Negative (Negative) Urine Bilirubin Negative (Negative) Urine Urobilinogen Normal (Normal) mg/dL Ur Leukocyte Esterase Negative (Negative) Salicylates (15.0-30.0) mg/dL Urine Opiates Screen Negative (Jmyxqm=076) ng/mL Acetaminophen (10-20) mcg/mL Ur Barbiturates Screen Negative (Ngioan=923) ng/mL Ur Phencyclidine Scrn Negative (Cutoff=25) ng/mL Ur Amphetamines Screen Negative (Abaibl=0255) ng/mL U Benzodiazepines Scrn Positive H (Zxnefd=569) ng/mL Urine Cocaine Screen Negative (Cutoff= 300) ng/mL U Marijuana (THC) Screen Negative (Cutoff = 50) ng/mL Ur Drug Screen Interp See Below Ethyl Alcohol (Less than 10) mg/dL 01/19/19 Range/Units 11:26 WBC (4.3-11.1) K/mcL RBC (3.82-4.97) M/mcL Hgb (11.5-15.4) g/dL Hct (35.3-44.9) % MCV (83.0-100.0) fL MCH (28.0-33.3) pg MCHC (31.6-35.5) g/dL RDW (11.5-14.5) % Plt Count (140-400) K/mcL MPV (9.4-12.4) fL Immature Gran % (0-4) % Seg Neutrophils % % Lymphocytes % % Monocytes % % Eosinophils % % Basophils % % Neutrophils # (1.6-8.9) K/mcL Lymphocytes # (0.6-4.6) K/mcL Monocytes # (0.0-1.3) K/mcL Eosinophils # (0.0-0.6) K/mcL Basophils # (0.0-0.2) K/mcL Sodium 139 (136-145) mEq/L Potassium 3.9 (3.5-5.1) mEq/L Chloride 109 H (98-107) mEq/L Carbon Dioxide 23 (23-29) mEq/L BUN 10 (6-20) mg/dL Creatinine 0.98 (0.60-1.20) mg/dL Est GFR ( Amer) > 60 (> 60) Est GFR (Non-Af Amer) > 60 (> 60) BUN/Creatinine Ratio 10 (6-26) Glucose 87 (70-105) mg/dL Calculated Osmolality 286 (280-300) Calcium 9.0 (8.6-10.3) mg/dL Urine Color (Yellow) Urine Clarity (Clear) Urine pH (5.0-8.0) pH Units Ur Specific [place] (1.010-1.025) Urine Protein (Neg-Trace) mg/dL Urine Glucose (UA) (Normal) mg/dL Urine Ketones (Negative) mg/dL Urine Blood (Negative) Urine Nitrite (Negative) Urine Bilirubin (Negative) Urine Urobilinogen (Normal) mg/dL Ur Leukocyte Esterase (Negative) Salicylates < 2.5 L (15.0-30.0) mg/dL Urine Opiates Screen (Kwzjaj=780) ng/mL Acetaminophen < 10 L (10-20) mcg/mL Ur Barbiturates Screen (Kxkikw=607) ng/mL Ur Phencyclidine Scrn (Cutoff=25) ng/mL Ur Amphetamines Screen (Wjnyxd=9220) ng/mL U Benzodiazepines Scrn (Oenzap=200) ng/mL Urine Cocaine Screen (Cutoff= 300) ng/mL U Marijuana (THC) Screen (Cutoff = 50) ng/mL Ur Drug Screen Interp Ethyl Alcohol < 10 (Less than 10) mg/dL Psychiatric Medical Clearance - Medical Clearance Checklist Medical History: No Social History Section defined Current Vitals: Last Vital Signs Temp 98.3 F 01/19/19 10:53 Pulse 88 01/19/19 10:53 Resp 16 01/19/19 10:53 BP 123/74 01/19/19 10:53 Pulse Ox 98 01/19/19 10:53 Psychiatric Lab Panel: Drug Levels and Toxicity 01/19/19 01/19/19 10:56 11:26 Urine Opiates Screen Negative Acetaminophen < 10 L Ur Barbiturates Screen Negative Ur Phencyclidine Scrn Negative Ur Amphetamines Screen Negative U Benzodiazepines Scrn Positive H Urine Cocaine Screen Negative U Marijuana (THC) Screen Negative Ethyl Alcohol < 10 Abnormal Labs: Abnormal lab results RBC 3.45 M/mcL (3.82-4.97) L 01/19/19 11:26 Hgb 10.1 g/dL (11.5-15.4) L 01/19/19 11:26 Hct 31.3 % (35.3-44.9) L 01/19/19 11:26 Chloride 109 mEq/L (98-107) H 01/19/19 11:26 Ur Specific [place] 1.005 (1.010-1.025) L 01/19/19 10:56 Salicylates < 2.5 mg/dL (15.0-30.0) L 01/19/19 11:26 Acetaminophen < 10 mcg/mL (10-20) L 01/19/19 11:26 U Benzodiazepines Scrn Positive ng/mL (Lxebdq=675) H 01/19/19 10:56 Statement of Medical Clearance: I have evaluated the patient, reviewed diagnostic information, and certify that the patient's medical condition is sufficiently stable that transfer to the psychiatric unit does not pose a significant risk of deterioration.
[2019-01-19] MEDS ORDERED: Mag Hydrox/Al Hydrox/Simeth 30 ML UDC PO PRN (17:26)
[2019-01-19] MEDS ORDERED: MOM Conc 10 ML UD.LIQ PO PRN (17:26)
[2019-01-19] MEDS ORDERED: *HR* LORazepam 1 MG TABLET PO PRN (17:26)
[2019-01-19] MEDS ORDERED: Ibuprofen 400 MG TABLET PO PRN (17:26)
[2019-01-19] MEDS ORDERED: Haloperidol Lactate 5 MG/ML VIAL IM PRN (17:26)
[2019-01-19] MEDS ORDERED: *HR* LORazepam 2 MG/ML VIAL IM PRN (17:26)
[2019-01-19] MEDS ORDERED: Nicotine 2 MG GUM BC PRN (20:51)
[2019-01-19] MEDS: traZODone 50 MG TABLET PO PRN (20:52)
[2019-01-19] MEDS: hydrOXYzine pamoate 25 MG CAPSULE PO PRN (20:52)
[2019-01-20] MEDS ORDERED: Ibuprofen 600 MG TABLET PO PRN (09:42)
[2019-01-20] MEDS ORDERED: tiZANidine 4 MG TABLET PO PRN (09:42)
--- NOTE | 2019-01-20 09:50 | Psychiatry History & Physical ---
Date of Encounter: 01/20/19 Time of Encounter: 09:25 History of Present Illness Patient Stated Chief Complaint: "I want to kill myself" Medicare Admission Attestation: For traditional Medicare patients the provided hospital inpatient services are reasonable and necessary and in the case of services not specified as inpatient-only under 42 CFR 419.22 (n), that they are appropriately provided as inpatient services in accordance 42 CFR 412.3. For Critical Access Hospital the patient may reasonably be expected to be discharged or transferred to a hospital within 96 hours after admission to the Critical Access Hospital. Admitted From: Emergency Dept Plans for Post Hospital Care: Home History of Present Illness: Ms. Sauceda is a 28 year old female with a history of self-reported depression, bipolar, borderline personality disorder, and anxiety disorder. She presented to the emergency room yesterday. She called her outpatient facility at [facility] on [address] stating that she was having a really hard time not sure if it was her medications or what the problem was and that she had been self harming. She did not have a follow-up total March 04 but was offered a follow-up on January 25 with a different provider. She is did not feel safe so she instead elected to go to the emergency room. In the ER she initially denied suicidal thoughts but once discharge planning began she said that she had actually been taking extra of her medications and that she had been having suicidal thoughts with a plan to overdose. She says she feels overwhelmed. She has been having marital and financial problems. She reports sad mood, decreased interest, feelings of guilt and worthlessness, low energy, decreased interest, poor sleep. She reports a history of manic symptoms including elevated irritable mood, irritability, grandiosity, decreased need for sleep, excessive speech. She denies auditory or visual hallucinations or other psychotic symptoms. Past Med Surg Social Fam HX - Past Medical History Medical history: asthma, other (She reports hypothyroidism, PCO ask, fibromyalgia in addition to her asthma.) - Past Psychiatric History Psychiatric history: Reports: anxiety, bipolar, depression, previous psychiatric hospitalization Past psychiatric history details: She is seen by Maryjane Beckham at [facility]. She recently had her Rexall T increase to 2 mg in the morning. She is also on Wellbutrin XL 300 a day and Prozac 60 a day. She has previously been on 80 mg total a day and said this helped morbidly were trying to streamline her medications. Additionally she has tried other medications in the past including Zoloft Lexapro and Effexor. She was on Stacia 1A in 2017 for suicidal thoughts. She has been cutting on her legs but denies a history of suicide attempts. Family psychiatric history: Yes Family Psychiatric History Details: she says both depression an and anxiety run in the family Family History of Suicide: None - Past Surgical History Surgical History: , orthopedic, other, other - Social History Smoking Status: Light tobacco smoker Smokeless Tobacco Status: No Alcohol use: rarely Drug use: marijuana Additional substance use detail: She reports rare alcohol. She says she occasionally uses cannabis 2-3 times per month and this helps her feel more happy. As a playpen for nicotine. Occupational status: unemployed Current living situation: Home - Independent Activity Level: Independent ambulation Recent Out of Country Travel Within the Last 8 Weeks: No Exposure or Possible Exposure to Illness During Travel: No Additional social history: She lives with her of 3 years. They have a 5-year-old son. Her works as a hospital chief financial officer. The patient is unemployed. She is in school trying to get her child psychology degree. - Family History Mother Living Status: Still Living Hx Family Cardiac Disorders: No Hx Family Respiratory Disorders: No Hx Family Cancer: No Hx Family GI Disorders: No Hx Family Endocrine Disorder: No Hx Family Neuromuscular Disorders: No Hx Family Neurologic Disorders: No Hx Family HEENT Disorders: No Hx Family Autoimmune Disorders: No Father Name: leatha bush Age: 51 Living Status: Still Living Hx Family Cardiac Disorders: Yes (DE) Hx Family Respiratory Disorders: Yes (copd) Hx Family Cancer: No Hx Family GI Disorders: No Hx Family Genitourinary Disorders: No Hx Family Endocrine Disorder: No Hx Family Musculoskeletal Disorders: No Hx Family Neuromuscular Disorders: No Hx Family Neurologic Disorders: No Hx Family HEENT Disorders: No Hx Family Autoimmune Disorders: No Hx Family Reproductive Disorders: No Hx Family Psychosocial Disorders: No Hx Family Medical Disorders: No Medications & Allergies Albuterol Sulfate [Proair Hfa] 2 puff IH Q4H PRN 02/26/16 [History] Pantoprazole Sodium [Protonix] 40 mg PO BID 02/26/16 [History] BuPROPion XL (24 HR) [Wellbutrin Xl] 300 mg PO DAILY 12/10/17 [History] Levothyroxine Sodium 175 mcg PO QAM 12/10/17 [History] Brexpiprazole [Rexulti] 2 mg PO DAILY 10/20/18 [History] Diclofenac Sodium [Voltaren] 75 mg PO DAILY PRN 10/20/18 [History] Eletriptan HBr [Relpax] 40 mg PO DAILY PRN 10/20/18 [History] FLUoxetine HCl [Prozac] 60 mg PO QAM 10/20/18 [History] Fremanezumab-Vfrm [Ajovy] 225 mg SQ QMONTH 10/20/18 [History] Metformin HCl [Metformin ER Gastric] 500 mg PO HS 10/20/18 [History] Tizanidine HCl 2 mg PO HS PRN 10/20/18 [History] diazePAM [Valium] 5 mg PO TID PRN 10/20/18 [History] Ibuprofen [Motrin] 600 mg PO Q8HR PRN #20 tab 11/24/18 [Rx] Pregabalin [Lyrica] 50 mg PO BID 01/19/19 [History] Ranitidine HCl [Acid Stay Cutter] 150 mg PO BID 01/19/19 [History] l-Norgest/E.estradiol-E.estrad [Levono-E Estrad 0.15-0.03-0.01] 1 tab PO DAILY 01/19/19 [History] Allergy/AdvReac Type Severity Reaction Status Date / Time shellfish derived Allergy Hives Verified 10/17/18 02:31 Review of Systems Constitutional: Denies: fever Eyes: Denies: eye pain Ears, Nose, Throat: Denies: ear pain Cardiovascular: Denies: chest pain Respiratory: Denies: cough Gastrointestinal: Denies: abdominal pain Genitourinary female: Denies: urgency Musculoskeletal: Denies: back pain Integumentary: Denies: rash Neurological: Reports: headache Psychiatric: Reports: depression, anxiety, abnormal sleep pattern, suicidal ideation, change in appetite, anhedonia, difficulty concentrating, hopelessness. Denies: homicidal ideation, auditory hallucinations, visual hallucinations Endocrine: Reports: fatigue Hematologic/Lymphatic: Denies: easy bleeding Allergic/Immunologic: Denies: facial swelling Exam - HEENT Head exam IM: Present: atraumatic Eye exam IM: Present: normal appearance ENT exam IM: Present: mucous membranes moist - Neurological Neurological exam: Present: CN II-XII intact (Grossly) - Respiratory Respiratory exam IM: Absent: respiratory distress - GI/Abdominal GI/Abdominal exam IM: Present: no peritoneal signs - Extremities Extremities exam IM: Present: full ROM - Skin Skin exam IM: Absent: cyanosis - Constitutional Vitals: Temp Pulse Resp BP Pulse Ox 97.9 F 91 20 117/75 98 01/20/19 09:00 01/20/19 09:00 01/20/19 09:00 01/20/19 09:00 01/20/19 09:00 General appearance: age & developmentally appropriate, obese - Musculoskeletal Gait: slow Station: stooped Strength & Tone: normal for patient - Psychiatric Patient Orientation: Yes Person, Yes Time, Yes Place, Yes Circumstance Level of alertness: Alert Behavior: tearful Psychomotor activity: Slowed Eye Contact: Minimal Contact Mood Description: Depressed Patient description of mood: Depressed Affect description: congruent with mood, dysphoric Speech Volume: Soft/Quiet Speech pattern: slowed Language & Vocabulary: consistent with education Thought Process: Linear, Goal Oriented Thought Content: Yes Suicidal ideation, No Homicidal ideation Perceptual Disturbances: No Auditory hallucinations, No Visual hallucinations Attention Span Ability: Capable of Focused Attention Memory Description: Grossly Intact Patient Reliability: Reliable Historian Fund of knowledge: Yes abstraction ability, Yes average, Yes aware of current events Intelligence Estimate: Average Judgment: Limited Insight: Minimal Results - Drug Levels and Toxicology Drug Levels and Toxicology: Drug Levels and Toxicity 01/19/19 01/19/19 10:56 11:26 Urine Opiates Screen Negative Acetaminophen < 10 L Ur Barbiturates Screen Negative Ur Phencyclidine Scrn Negative Ur Amphetamines Screen Negative U Benzodiazepines Scrn Positive H Urine Cocaine Screen Negative U Marijuana (THC) Screen Negative Ethyl Alcohol < 10 Short CBC 01/19/19 Range/Units 11:26 WBC 7.0 (4.3-11.1) K/mcL Hgb 10.1 L (11.5-15.4) g/dL Hct 31.3 L (35.3-44.9) % Plt Count 173 (140-400) K/mcL Neutrophils # 4.4 (1.6-8.9) K/mcL BMP 01/19/19 Range/Units 11:26 Sodium 139 (136-145) mEq/L Potassium 3.9 (3.5-5.1) mEq/L Chloride 109 H (98-107) mEq/L Carbon Dioxide 23 (23-29) mEq/L BUN 10 (6-20) mg/dL Creatinine 0.98 (0.60-1.20) mg/dL Glucose 87 (70-105) mg/dL Calcium 9.0 (8.6-10.3) mg/dL Urine 01/19/19 Range/Units 10:56 Urine Color Yellow (Yellow) Urine Clarity Clear (Clear) Urine pH 6.5 (5.0-8.0) pH Units Ur Specific [place] 1.005 L (1.010-1.025) Urine Protein Negative (Neg-Trace) mg/dL Urine Glucose (UA) Normal (Normal) mg/dL - Labs Labs: Laboratory Last Values WBC 7.0 K/mcL (4.3-11.1) 01/19/19 11:26 RBC 3.45 M/mcL (3.82-4.97) L 01/19/19 11:26 Hgb 10.1 g/dL (11.5-15.4) L 01/19/19 11:26 Hct 31.3 % (35.3-44.9) L 01/19/19 11:26 MCV 90.7 fL (83.0-100.0) 01/19/19 11:26 MCH 29.3 pg (28.0-33.3) 01/19/19 11:26 MCHC 32.3 g/dL (31.6-35.5) 01/19/19 11:26 RDW 14.2 % (11.5-14.5) 01/19/19 11:26 Plt Count 173 K/mcL (140-400) 01/19/19 11:26 MPV 12.0 fL (9.4-12.4) 01/19/19 11:26 Immature Gran % 0.6 % (0-4) 01/19/19 11:26 Seg Neutrophils % 61.8 % 01/19/19 11:26 28.9 % 01/19/19 11:26 7.0 % 01/19/19 11:26 1.4 % 01/19/19 11:26 0.3 % 01/19/19 11:26 4.4 K/mcL (1.6-8.9) 01/19/19 11:26 2.0 K/mcL (0.6-4.6) 01/19/19 11:26 0.5 K/mcL (0.0-1.3) 01/19/19 11:26 0.1 K/mcL (0.0-0.6) 01/19/19 11:26 0.0 K/mcL (0.0-0.2) 01/19/19 11:26 Sodium 139 mEq/L (136-145) 01/19/19 11:26 Potassium 3.9 mEq/L (3.5-5.1) 01/19/19 11:26 Chloride 109 mEq/L (98-107) H 01/19/19 11:26 Carbon Dioxide 23 mEq/L (23-29) 01/19/19 11:26 BUN 10 mg/dL (6-20) 01/19/19 11:26 0.98 mg/dL (0.60-1.20) 01/19/19 11:26 Est GFR ( Amer) > 60 (> 60) 01/19/19 11:26 Est GFR (Non-Af Amer) > 60 (> 60) 01/19/19 11:26 10 (6-26) 01/19/19 11:26 Glucose 87 mg/dL (70-105) 01/19/19 11:26 286 (280-300) 01/19/19 11:26 Calcium 9.0 mg/dL (8.6-10.3) 01/19/19 11:26 Yellow (Yellow) 01/19/19 10:56 Clear (Clear) 01/19/19 10:56 6.5 pH Units (5.0-8.0) 01/19/19 10:56 Ur Specific [place] 1.005 (1.010-1.025) L 01/19/19 10:56 Negative mg/dL (Neg-Trace) 01/19/19 10:56 Normal mg/dL (Normal) 01/19/19 10:56 Negative mg/dL (Negative) 01/19/19 10:56 Negative (Negative) 01/19/19 10:56 Negative (Negative) 01/19/19 10:56 Negative (Negative) 01/19/19 10:56 Normal mg/dL (Normal) 01/19/19 10:56 Ur Leukocyte Esterase Negative (Negative) 01/19/19 10:56 Salicylates < 2.5 mg/dL (15.0-30.0) L 01/19/19 11:26 Negative ng/mL (Ufwdgl=510) 01/19/19 10:56 Acetaminophen < 10 mcg/mL (10-20) L 01/19/19 11:26 Ur Barbiturates Screen Negative ng/mL (Nuqerx=578) 01/19/19 10:56 Ur Phencyclidine Scrn Negative ng/mL (Cutoff=25) 01/19/19 10:56 Ur Amphetamines Screen Negative ng/mL (Yuegvw=1198) 01/19/19 10:56 U Benzodiazepines Scrn Positive ng/mL (Rqrgtz=724) H 01/19/19 10:56 Negative ng/mL (Cutoff= 300) 01/19/19 10:56 U Marijuana (THC) Screen Negative ng/mL (Cutoff = 50) 01/19/19 10:56 Ur Drug Screen Interp See Below 01/19/19 10:56 Ethyl Alcohol < 10 mg/dL (Less than 10) 01/19/19 11:26 Assessment and Plan (1) Unspecified mood [affective] disorder Current visit: Yes Status: Acute Plan: Admit inpatient for safety and stabilization, Close observation, Suicide Precautions per unit protocol, Encourage participation in unit milieu, Group Therapy, Monitor sleep, Monitor appetite Additional Plan: Patient is going to have someone bring in her resulted. We will continue her Valium and Prozac. I will increase Wellbutrin to 450 mg a day for further treatment of her depression. Encourage group attendance. Reviewed Interval hx Review any current labs Pt had an opportunity to ask questions and discuss current treatment plan. Supportive therapy was provided Pt encouraged to consider group or individual therapy Pt was in agreement with treatment plan. Pt was educated on the risks benefits and side effects of current medications and alternatives as well as the risks and benefits of no medication. AIMS = 0 lipids and hgba1c Risks, benefits, side effects, alternatives discussed w/pt: Yes Patient agreeable to treatment: Yes Plans for Post Hospital Care: Home Estimated Length of Stay (Days): 5
[2019-01-20] MEDS: BuPROPion XL (24 HR) 150 MG TABLET PO SCH ×2 (11:44→11:45)
[2019-01-20] MEDS: *HR* Metformin 500 MG TABLET PO SCH ×2 (11:45→21:58)
[2019-01-20] MEDS: FLUoxetine 20 MG CAPSULE PO SCH (11:45)
[2019-01-20] MEDS: Pregabalin 50 MG CAPSULE PO SCH ×2 (11:45→21:57)
[2019-01-20] MEDS: diazePAM 5 MG TABLET PO PRN (18:57)
[2019-01-20] MEDS: hydrOXYzine pamoate 25 MG CAPSULE PO PRN (21:57)
[2019-01-20] MEDS: Famotidine 20 MG TABLET PO SCH (21:57)
[2019-01-20] MEDS: traZODone 50 MG TABLET PO PRN (21:58)
[2019-01-20] MEDS: Nicotine 14 MG PATCH.TD24 TD SCH (22:49)
--- NOTE | 2019-01-21 07:48 | Discharge Summary ---
Date of Encounter: 01/21/19 Time of Encounter: 07:45 Diagnosis - Discharge Diagnosis (1) Unspecified mood [affective] disorder Status: Acute Medications - Discharge Medications Prescriptions: hydrOXYzine pamoate [HydrOXYzine Pamoate] 25 mg PO TID PRN #30 capsule PRN Reason: Anxiety traZODone [TraZODone] 50 mg PO HS PRN #15 tablet PRN Reason: Insomnia BuPROPion XL (24 HR) [Wellbutrin Xl] 450 mg PO DAILY #45 tab.er.24h Albuterol Sulfate [Proair Hfa] 2 puff IH Q4H PRN 02/26/16 [History] Pantoprazole Sodium [Protonix] 40 mg PO BID 02/26/16 [History] Levothyroxine Sodium 175 mcg PO QAM 12/10/17 [History] Brexpiprazole [Rexulti] 2 mg PO DAILY 10/20/18 [History] Diclofenac Sodium [Voltaren] 75 mg PO DAILY PRN 10/20/18 [History] Eletriptan HBr [Relpax] 40 mg PO DAILY PRN 10/20/18 [History] FLUoxetine HCl [Prozac] 60 mg PO QAM 10/20/18 [History] Fremanezumab-Vfrm [Ajovy] 225 mg SQ QMONTH 10/20/18 [History] Metformin HCl [Metformin ER Gastric] 500 mg PO HS 10/20/18 [History] Tizanidine HCl 2 mg PO HS PRN 10/20/18 [History] diazePAM [Valium] 5 mg PO TID PRN 10/20/18 [History] Ibuprofen [Motrin] 600 mg PO Q8HR PRN #20 tab 11/24/18 [Rx] Pregabalin [Lyrica] 50 mg PO BID 01/19/19 [History] Ranitidine HCl [Acid Custodian Supervisor] 150 mg PO BID 01/19/19 [History] l-Norgest/E.estradiol-E.estrad [Levono-E Estrad 0.15-0.03-0.01] 1 tab PO DAILY 01/19/19 [History] BuPROPion XL (24 HR) [Wellbutrin Xl] 450 mg PO DAILY #45 tab.er.24h 01/21/19 [Rx] hydrOXYzine pamoate [HydrOXYzine Pamoate] 25 mg PO TID PRN #30 capsule 01/21/19 [Rx] traZODone [TraZODone] 50 mg PO HS PRN #15 tablet 01/21/19 [Rx] Allergy/AdvReac Type Severity Reaction Status Date / Time shellfish derived Allergy Hives Verified 10/17/18 02:31 Results Procedures and tests throughout hospitalization: Completed Lab Orders Category Date Time Status Acetaminophen Stat Lab 01/19/19 11:26 Completed Basic Metabolic Panel Stat Lab 01/19/19 11:26 Completed Complete Blood Count [HEME] Stat Lab 01/19/19 11:26 Completed Drug Screen, Urine [UCHEM] Stat Lab 01/19/19 10:56 Completed Ethanol Stat Lab 01/19/19 11:26 Completed Salicylate Stat Lab 01/19/19 11:26 Completed Urinalysis reflex Microscopic [URIN] Stat Lab 01/19/19 10:56 Completed Laboratory Results - last 48 hr 01/19/19 01/19/19 01/19/19 10:56 10:56 11:26 WBC 7.0 RBC 3.45 L Hgb 10.1 L Hct 31.3 L MCV 90.7 MCH 29.3 MCHC 32.3 RDW 14.2 Plt Count 173 MPV 12.0 Immature Gran % 0.6 Seg Neutrophils % 61.8 Lymphocytes % 28.9 Monocytes % 7.0 Eosinophils % 1.4 Basophils % 0.3 Neutrophils # 4.4 Lymphocytes # 2.0 Monocytes # 0.5 Eosinophils # 0.1 Basophils # 0.0 Sodium Potassium Chloride Carbon Dioxide BUN Creatinine Est GFR ( Amer) Est GFR (Non-Af Amer) BUN/Creatinine Ratio Glucose Calculated Osmolality Calcium Urine Color Yellow Urine Clarity Clear Urine pH 6.5 Ur Specific [place] 1.005 L Urine Protein Negative Urine Glucose (UA) Normal Urine Ketones Negative Urine Blood Negative Urine Nitrite Negative Urine Bilirubin Negative Urine Urobilinogen Normal Ur Leukocyte Esterase Negative Salicylates Urine Opiates Screen Negative Acetaminophen Ur Barbiturates Screen Negative Ur Phencyclidine Scrn Negative Ur Amphetamines Screen Negative U Benzodiazepines Scrn Positive H Urine Cocaine Screen Negative U Marijuana (THC) Screen Negative Ur Drug Screen Interp See Below Ethyl Alcohol 01/19/19 11:26 WBC RBC Hgb Hct MCV MCH MCHC RDW Plt Count MPV Immature Gran % Seg Neutrophils % Lymphocytes % Monocytes % Eosinophils % Basophils % Neutrophils # Lymphocytes # Monocytes # Eosinophils # Basophils # Sodium 139 Potassium 3.9 Chloride 109 H Carbon Dioxide 23 BUN 10 Creatinine 0.98 Est GFR ( Amer) > 60 Est GFR (Non-Af Amer) > 60 BUN/Creatinine Ratio 10 Glucose 87 Calculated Osmolality 286 Calcium 9.0 Urine Color Urine Clarity Urine pH Ur Specific [place] Urine Protein Urine Glucose (UA) Urine Ketones Urine Blood Urine Nitrite Urine Bilirubin Urine Urobilinogen Ur Leukocyte Esterase Salicylates < 2.5 L Urine Opiates Screen Acetaminophen < 10 L Ur Barbiturates Screen Ur Phencyclidine Scrn Ur Amphetamines Screen U Benzodiazepines Scrn Urine Cocaine Screen U Marijuana (THC) Screen Ur Drug Screen Interp Ethyl Alcohol < 10 Provider Date of admission: 01/19/19 17:30 Primary care physician: PCP NONE Discharging clinician: Elizabeth August Psychiatry Exam - Constitutional Vitals: Temp Pulse Resp BP Pulse Ox 98.6 F 100 16 107/69 100 01/20/19 21:00 01/20/19 21:00 01/20/19 21:00 01/20/19 21:00 01/20/19 21:00 General appearance: age & developmentally appropriate, well-groomed, well- nourished - Musculoskeletal Gait: normal Station: relaxed Strength & Tone: normal for patient - Psychiatric Patient Orientation: Yes Person, Yes Time, Yes Place Level of alertness: Alert Behavior: calm, cooperative Psychomotor activity: Normal Eye Contact: Maintains Eye Contact Mood Description: Euthymic/stable Patient description of mood: ok Affect description: congruent with mood, full range Speech Volume: Normal Speech pattern: normal rate, normal rhythm, normal tone, fluent, spontaneous Language & Vocabulary: consistent with education Thought Process: Linear, Goal Oriented Thought Content: No Suicidal ideation, No Homicidal ideation, No Overt delusions Perceptual Disturbances: No Auditory hallucinations, No Visual hallucinations Attention Span Ability: Capable of Focused Attention Memory Description: Grossly Intact Patient Reliability: Reliable Historian Fund of knowledge: Yes abstraction ability, Yes aware of current events Intelligence Estimate: Average Judgment: Good Insight: Full Hospital Course Hospital course: Ms. Sauceda is a 28 year old female who was admitted for increased depression and suicidal thoughts. We increased her Wellbutrin. She identified the next day and that it had been borderline crisis brought about by stress in her relationship. She had a good talk with her .Patient was educated of diagnosis and the risk-benefit side effects of this alternative treatment options and was monitored for responsiveness and side effects. Mood anxiety sleep and appetite interest improved as did future orientation. Self-harm thoughts subsided, thinking was clear psychosis not present, and mood stabilized. Patient was able to attend both individual and group therapy sessions as well as meet with the psychiatrist daily and urged to discuss any medication or treatment issues or other concerns. The patient was educated primarily by verbal means about their diagnosis and manifestations in their life. The option for treatment including group and individual therapy programming was offered to the patient in addition to the use of medications with all their potential risks, benefits, and side effects as well as the risks of not taking medication and non-adhereance were discussed with the patient at length. The patient was given the opportunity to ask questions and was noted to participate in the treatment in the planning process. The patient felt ready and eager to be discharged from the inpatient psychiatric unit to continue on with treatment as an outpatient. The patient agreed that is they were safe for this disposition. The patient was considered to be able to participate in informed consent and decision making with respect to medical, legal, and financial issues of the time of discharge. At the time of discharge the patient adamantly denied any concerns for lethality including suicidal or homicidal thoughts ideations or plans and was future oriented toward ongoing mental health care, medical follow-up and sobriety. Time spent discussing smoking cessation with patient: 3 to 10 minutes Does patient wish to continue nicotine replacement upon disc: No - Time Spent with Patient Total time spent providing and/or coordinating discharge services: 25 Less than 30 minutes Specific discharge activities: Interval history reviewed. Available labs reviewed . Psychotherapy provided. Patient had an opportunity to ask questions and address concerns. Patient was in agreement with the treatment plan. The risks benefits and side effects of medications were discussed with the patient, including alternatives and treatment. The patient was educated on the abstaining from any alcohol or illicit substances, following up with all scheduled appointments, and taking all medications as prescribed. Assessment and Plan - Patient/Caregiver Discharge Instructions Activity: resume usual activities as tolerated Diet: regular diet Additional Instructions: Continue current medications. Follow up with outpatient mental health. Encourage continued therapy in a group or individual setting. The patient was discharged to home. - Follow up Plan Follow up with: [facility] [Outside] - 01/28/19 11:00 am (You have an appointment scheduled for February at 1:[address] Arely Beckham D.O. for medication management. You have an appointment scheduled with FAUSTINO Mott on January at 11:00 AM for Counseling. Please contact the office at least 24 hours in advance if you are unable to keep your appointment(s). ) Functional capacity at discharge: independent ambulation Overall status at discharge: Stable Disposition: Home, Self-Care Quality - Multiple Antipsychotics Patient discharged on 2 or more antipsychotic medications: No Procedures - Procedures Procedures: Medication Management, Crisis Stabilization, Supportive Therapy, Group Therapy, Psychoeducational Therapy
[2019-01-21] MEDS: Nicotine 14 MG PATCH.TD24 TD SCH (08:32)
[2019-01-21] MEDS: FLUoxetine 20 MG CAPSULE PO SCH (08:33)
[2019-01-21] MEDS: Pregabalin 50 MG CAPSULE PO SCH (08:33)
[2019-01-21] MEDS: BuPROPion XL (24 HR) 150 MG TABLET PO SCH ×2 (08:33)
[2019-01-21] MEDS: Famotidine 20 MG TABLET PO SCH (08:33)
[2019-01-21] MEDS: diazePAM 5 MG TABLET PO PRN (08:33)
[2019-01-21] MEDS ORDERED: E ESTRADIOL E ESTRAD PO SCH (09:00)
[2019-01-21] MEDS ORDERED: NORGEST PO SCH (09:00)
[2019-01-21] MEDS ORDERED: (Brexpiprazole [Rexulti] 2 MG) PO SCH (09:00)
[2019-01-21 09:34] LABS: Chol/HDL Ratio 4.3 (0-4.9)
[2019-01-21 09:40] LABS: Estimated Average Glucose 108 mg/dl; Hemoglobin A1C 5.4 %
[2019-01-21 09:49] LABS: Thyroid Stimulating Hormone 0.48 mcIU/mL (0.340-5.600)
[2019-01-21 11:27] VITALS: BP 119/76
== END 2019-01-21 11:20 | disposition home or self-care (01) | DRG 885 ==
LOC: EMEROOARM 10:46 → 1ANU 10:46
PROVIDERS: ADMIT Psychiatry & Neurology Psychiatry; ATTEND Psychiatry & Neurology Psychiatry

== ENCOUNTER 2019-12-21 15:48 | Inpatient (IN) ==
[2019-12-21 16:16] LABS: Basophils % 0.5 %; Eosinophils # 0.2 K/mcL (0.0-0.6); Eosinophils % 2.8 %; Hematocrit 40.3 % (35.3-44.9); Immature Granulocytes % 0.5 % (0-4); Lymphocytes # 2.3 K/mcL (0.6-4.6); Lymphocytes % 30.3 %; Mean Corpuscular HGB Conc 32.3 g/dL (31.6-35.5); Mean Corpuscular Hemoglobin 31.8 pg (28.0-33.3); Mean Corpuscular Volume 98.5 fL (83.0-100.0); Mean Platelet Volume 11.7 fL (9.4-12.4); Monocytes # 0.5 K/mcL (0.0-1.3); Neutrophils # 4.5 K/mcL (1.6-8.9); Platelet Count 189 K/mcL (140-400); Red Blood Count 4.09 M/mcL (3.82-4.97); Red Cell Distribution Width 13.1 % (11.5-14.5); Segmented Neutrophils % 59.9 %; White Blood Count 7.5 K/mcL (4.3-11.1)
[2019-12-21 16:23] LABS: Bilirubin,Urine Negative (Negative); Blood,Urine Negative (Negative); Clarity,Urine Clear (Clear); Color,Urine Yellow (Yellow); Glucose,Urine (UA) Normal (Normal); Ketones,Urine Negative (Negative); Leukocyte Esterase,Urine Negative (Negative); Nitrite,Urine Negative (Negative); Protein,Urine Negative (Neg-Trace); Specific Gravity,Urine 1.014 (1.010-1.025); Urobilinogen,Urine Normal (Normal)
[2019-12-21 16:27] LABS: Amphetamine Screen,Urine Negative ng/mL (Cutoff=1000); Barbiturate Screen,Urine Negative ng/mL (Cutoff=200); Benzodiazepines Screen,Urine Positive ng/mL (Cutoff=200); Cannabinoid Screen,Urine Negative ng/mL (Cutoff = 50); Cocaine Screen,Urine Negative ng/mL (Cutoff= 300); Opiate Screen,Urine Negative ng/mL (Cutoff=300); Phencyclidine Screen,Urine Negative ng/mL (Cutoff=25)
[2019-12-21 16:41] LABS: Acetaminophen < 10 mcg/mL (10-20); BUN/Creatinine Ratio 12 (6-26); Blood Urea Nitrogen 11 mg/dL (6-20); Calcium 9.4 mg/dL (8.6-10.3); Carbon Dioxide 22 mEq/L (23-29); Chloride 107 mEq/L (98-107); Ethanol < 10 mg/dL (Less than 10); Glucose 102 mg/dL (70-105); Osmolality,Calculated 286 (280-300); Salicylate < 2.5 mg/dL (15.0-30.0); Sodium 138 mEq/L (136-145); eGFR For African Americans > 60 (> 60); eGFR For Non-African Americans > 60 (> 60)
[2019-12-21] MEDS ORDERED: *HR* LORazepam 1 MG TABLET PO PRN (18:26)
[2019-12-21] MEDS ORDERED: *HR* LORazepam 2 MG/ML VIAL IM PRN (18:26)
[2019-12-21] MEDS ORDERED: Haloperidol Lactate 5 MG/ML VIAL IM PRN (18:26)
[2019-12-21] MEDS ORDERED: MOM Conc 10 ML UD.LIQ PO PRN (18:26)
[2019-12-21] MEDS ORDERED: Nicotine 2 MG GUM BC PRN (18:26)
[2019-12-21] MEDS ORDERED: haloperidoL 5 MG TABLET PO PRN (18:26)
[2019-12-21] MEDS ORDERED: Mag Hydrox/Al Hydrox/Simeth 30 ML UDC PO PRN (18:26)
[2019-12-21] MEDS ORDERED: Acetaminophen 325 MG TABLET PO PRN (18:26)
[2019-12-21] MEDS: clonazePAM 1 MG TABLET PO PRN (20:57)
[2019-12-21] MEDS: Famotidine 20 MG TABLET PO SCH (20:57)
[2019-12-21] MEDS: traZODone 50 MG TABLET PO PRN (20:58)
[2019-12-21] MEDS: hydrOXYzine pamoate 25 MG CAPSULE PO PRN (20:58)
[2019-12-22] MEDS: Famotidine 20 MG TABLET PO SCH ×2 (09:03→20:09)
[2019-12-22] MEDS: clonazePAM 1 MG TABLET PO PRN (19:25)
[2019-12-22] MEDS: hydrOXYzine pamoate 25 MG CAPSULE PO PRN (20:09)
[2019-12-22] MEDS: traZODone 50 MG TABLET PO PRN (20:09)
[2019-12-23] MEDS: Famotidine 20 MG TABLET PO SCH (08:53)
[2019-12-23 09:05] VITALS: BP 126/90
== END 2019-12-23 11:52 | disposition home or self-care (01) ==
LOC: 1ANU 15:48 → EMEROOARM 15:48 → 1ANU 18:47
PROVIDERS: ADMIT Psychiatry & Neurology Psychiatry; ATTEND Psychiatry & Neurology Psychiatry

== ENCOUNTER 2020-02-27 01:45 | Observation (INO) ==
[2020-02-27] MEDS ORDERED: Aspirin 81 MG TAB.CHEW PO ONE (01:48)
[2020-02-27] MEDS ORDERED: 0.9 % Sodium Chloride 500 ML IVC ONE (01:48)
[2020-02-27 02:13] LABS: Basophils % 0.3 %; Eosinophils # 0.2 K/mcL (0.0-0.6); Eosinophils % 1.6 %; Hematocrit 35.4 % (35.3-44.9); Hemoglobin 11.6 g/dL (11.5-15.4); Lymphocytes # 2.9 K/mcL (0.6-4.6); Lymphocytes % 29.8 %; Mean Corpuscular HGB Conc 32.8 g/dL (31.6-35.5); Mean Corpuscular Hemoglobin 32.6 pg (28.0-33.3); Mean Corpuscular Volume 99.4 fL (83.0-100.0); Mean Platelet Volume 11.1 fL (9.4-12.4); Monocytes # 0.7 K/mcL (0.0-1.3); Monocytes % 7.1 %; Neutrophils # 5.8 K/mcL (1.6-8.9); Platelet Count 189 K/mcL (140-400); Red Blood Count 3.56 M/mcL (3.82-4.97); Segmented Neutrophils % 60.2 %; White Blood Count 9.6 K/mcL (4.3-11.1)
[2020-02-27 02:29] LABS: BUN/Creatinine Ratio 11 (6-26); Blood Urea Nitrogen 9 mg/dL (6-20); Calcium 8.9 mg/dL (8.6-10.3); Carbon Dioxide 20 mEq/L (23-29); Chloride 108 mEq/L (98-107); Glucose 114 mg/dL (70-105); Osmolality,Calculated 290 (280-300); Potassium 3.5 mEq/L (3.5-5.1); Sodium 140 mEq/L (136-145); eGFR For African Americans > 60 (> 60); eGFR For Non-African Americans > 60 (> 60)
[2020-02-27 02:30] LABS: Troponin I < 0.03 ng/mL (< 0.04)
[2020-02-27] MEDS ORDERED: Isovue-370 500 ML BOTTLE IVP ONE (02:38)
[2020-02-27] MEDS ORDERED: Morphine Sulfate 2 MG/ML SYRINGE IVP ONE (03:59)
[2020-02-27] MEDS ORDERED: *HR* Heparin 5,000 UNIT/ML VIAL IVP PRN ×2 (04:19)
[2020-02-27] MEDS ORDERED: *HR* Heparin 5,000 UNIT/ML VIAL IVP ONE (04:19)
[2020-02-27] MEDS ORDERED: Ondansetron 4 MG/2 ML VIAL IVP ONE (04:29)
[2020-02-27] MEDS ORDERED: Heparin 25,000 UNIT/250 ML D5W 25,000 UNIT/250 ML IV.SOLN IVC SCH (04:30)
[2020-02-27 04:33] LABS: INR 0.9
[2020-02-27 04:35] LABS: Activated Partial Thrombo Time 25.2 Seconds (26.0-36.0)
[2020-02-27 04:55] LABS: Heparin anti-factor XA UFH < 0.04 IU/mL (0.30-0.70)
[2020-02-27] MEDS ORDERED: Acetaminophen 325 MG TABLET PO PRN (05:22)
[2020-02-27] MEDS ORDERED: Naloxone 0.4 MG/ML INJ IVP PRN (05:22)
[2020-02-27] MEDS ORDERED: Ondansetron 4 MG/2 ML VIAL IVP PRN (05:22)
[2020-02-27] MEDS ORDERED: clonazePAM 1 MG TABLET PO PRN (05:24)
[2020-02-27] MEDS ORDERED: ADDERALL 10 MG PO PRN (05:24)
[2020-02-27] MEDS ORDERED: Nitroglycerin 0.4 MG TAB.SUBL SL PRN (07:36)
[2020-02-27] MEDS ORDERED: *HR* HYDROcodone/Acet 5/325 mg TABLET PO ONE (07:51)
[2020-02-27] MEDS ORDERED: Albuterol 2.5 MG/3 ML NEBULIZER IH PRN (08:53)
[2020-02-27] MEDS ORDERED: Famotidine 20 MG TABLET PO SCH (09:00)
[2020-02-27] MEDS ORDERED: BuPROPion XL (24 HR) 150 MG TABLET PO SCH (09:00)
[2020-02-27] MEDS ORDERED: Perflutren Lipid Microsphere 1.3 ML in 0.9 % Sodium Chloride 8.7 ML IVP ONE (11:57)
[2020-02-27] MEDS ORDERED: Apixaban 5 MG TABLET PO SCH ×2 (17:15→21:00)
[2020-02-27 17:20] VITALS: BP 122/83
[2020-02-27] MEDS ORDERED: Divalproex (24 HR) 500 MG TABLET PO SCH (21:00)
== END 2020-02-27 17:55 | disposition home or self-care (01) ==
LOC: 2ANU 01:45 → EMEROOARM 01:45 → SUATTDRO 04:39 → 2ANU 05:00
PROVIDERS: ADMIT Internal Medicine; ATTEND Family Medicine